=== PATIENT | male | born 1940 | race Caucasian/White ===

== ENCOUNTER 2019-05-10 23:19 | Inpatient (IN) | payer MEDICARE, BC ==
[~2019-05-10] VITALS: Ht 172.7 cm; Wt 77.3 kg
--- NOTE | ~2019-05-10 | HEMODYNAMI ---
PATIENT:CASSIE MONROY MEDICAL RECORD: [id number] : 38 LOCATION:[facility] D.2138 ADMISSION DATE: 05/11/19 Generatedon:05/15/201912:37 Patient name: CASSIE MONROY Patient #: [id number] SSN: : 1940 Date of study: 05/15/2019 Page: Of Hemodynamic Procedure Report Patient Data Patient Demographics Procedure consent was obtained First Name: CASSIE Gender: Male Last Name: ELIANA : 1940 Patient #: [id number] Age: 78 year(s) Race: Unknown Additional ID: [id number] Contact details [address]: [address] [place] [address] State: [place] City: [place] Zip code: [address] Admission Admission Data Admission Date: 05/11/2019 Admission Time: 2:23 Room #: D.2138 Lab Results Lab Result Date: 05/15/2019 Lab Result Time: 0:00 Biochemistry Name Units Result Min Max BUN mg/dl 34 --(----)-* 7 18 Creatinine mg/dl 1.4 --(----)*- 0.6 1.3 CBC Name Units Result Min Max Hemoglobin g/dl 9.8 *-(----)-- 13.5 17.5 Procedure Procedure Types Cath Procedure Diagnostic Procedure CIARA Procedure Description Procedure Date Procedure Date: 05/15/2019 Procedure Start Time: 12:25 Procedure End Time: 12:36 Procedure Staff Name Function Donald Kapadia MD Performing Physician Teresa Mendoza RT Monitor Nolberto Fink RT Scrub Shaunna Cervantes RT Scrub Elmer Estrada Multi Mission Helicopter Aircrewman Alfredo Combs MD Additional personnel Keila Rosales RN Candy Bar Attendant Procedure Data Cath Procedure Fluoroscopy Diagnostic fluoroscopy Total fluoroscopy Time: 0 time: 0 min min Diagnostic fluoroscopy Total fluoroscopy dose: 0 dose: 0 mGy mGy Contrast Material Contrast Material Type Amount (ml) Isovue 300 0 Estimated blood loss: 0 ml Procedure Complications No complications Procedure Medications Medication Administration Route Dosage 0.9% NaCl I.V. 100 ml/hr Oxygen etCO2 Nasal cannula 3 l/min Hurricaine [place] P.O. 2 Sprays Refer to Anesthesia Notes for Sedation Medications Hemodynamics Rest HGB: 9.8 (g/dl) Pre Cath Intra NCS Post Cath Vital Signs Time Heart Resp SPO2 etCO2 NIBP (mmHg) Rhythm Pain Sedation Rate (ipm) (%) (mmHg) Status Level (bpm) 12:19:06 80 15 100 0 187/107(155) NSR 0 (11) 10(A) , No pain 12:24:05 74 12 100 0.7 Measuring NSR 0 (11) 10(A) , No pain 12:24:46 78 13 100 0 195/105(180) NSR 0 (11) 10(A) , No pain 12:27:55 73 17 99 0 156/79(132) NSR 0 (11) 5(A) , No pain 12:31:28 49 16 98 0 117/59(83) NSR 0 (11) 10(A) , No pain 12:33:04 38 25 98 0 113/52(87) NSR 0 (11) 10(A) , No pain Medications Time Medication Route Dose Verified Delivered Reason Notes Effectiv eness by by 12:25:37 0.9% NaCl I.V. 100 Donald Keila used for ml/hr Steffi Rosales repack room worker 12:25:44 Oxygen etCO2 3 Donald Keila used for Nasal l/min Steffi Rosales procedure cannula RN 12:25:56 Hurricaine P.O. 2 Donald Keila used for [place] Sprays Steffi Rosales repack room worker 12:26:10 Refer to Donald Bennett Anesthesia Steffi Kapadia MD Notes for Sedation Medications Procedure Log Time Note 11:50:00 Elmer Estrada Boom Stick Man present for CIARA. 11:50:28 Alfredo Combs MD present and monitoring patient for TIVA. 12:05:27 Informed consent obtained and on chart 12:05:34 Diagnostic Cath Status : Elective 12:06:21 Nolberto Fink RT(R) sent for patient. Start room use. 12:06:22 Time tracking: Regular hours (M-F 7:00 - 5:00) 12:06:26 Plan of Care:Hemodynamics will remain stable., Cardiac rhythm will remain stable., Comfort level will be maintained., Respiratory function will remain adequate., Patient/ family verbilizes understanding of procedure., Procedure tolerated without complication., Recovers from procedure without complications.. 12:14:37 Patient received from Med II to CCL 2 Alert and oriented. Tansferred to table in Supine position. 12:14:38 Warm blankets applied, and ruddy hugger turned on for patient comfort. 12:14:38 Correct patient and procedure confirmed by team. 12:14:39 ECG and BP/O2 sat monitors applied to patient. 12:17:54 Vital chart was started 12:18:21 Full Disclosure recording started 12:18:26 H&P Date Dictated: 05/15/2019 New H&P dictated by physician.. 12:18:27 Pre-procedure instructions explained to patient. 12:18:28 Pre-op teaching completed and patient verbalized understanding. 12:18:29 Family in waiting room. 12:18:30 Patient NPO since Midnight. 12:18:32 Is the patient allergic to Iodine/contrast media? No. 12:18:33 Was the patient premedicated? No 12:20:35 Is patient on blood thinner?No 12:20:37 Patient diabetic? Unknown. 12:20:40 Previous problem with sedation/anesthesia? No ? 12:20:42 Snore? Unknown 12:20:44 Sleep apnea? Unknown 12:20:45 Deviated septum? No 12:20:46 Opens mouth fully? Yes 12:20:46 Sticks out tongue? Yes 12:21:18 Airway obstruction? No ? 12:21:22 Dentures? No ? 12:21:32 Patient pain scale 0/10 ?. 12:21:39 IV patent on arrival in right antecubital with 0.9% NaCl at [facility]. 12:21:41 Lab results completed and on chart. 12:21:44 Alarms reviewed by R. N. 12:21:45 Sharps counted by scrub and verified by R.N. 12:23:26 Lab Result : BUN 34 mg/dl 12:23:26 Lab Result : Hemoglobin 9.8 g/dl 12:23:26 Lab Result : Creatinine 1.4 mg/dl 12:25:21 Physician arrived 12:25:21 Final Timeout: patient, procedure, and site verified with staff and physician. All members of the team are in agreement. 12:25:22 --------ALL STOP TIME OUT------ 12:25:32 Fire Safety Assessment: A--An alcohol-based skin anteseptic being used preoperatively., C--Open oxygen or nitrous oxide is being used., D--An ESU, laser, or fiber-optic light is being used. 12:25:37 0.9% NaCl 100 ml/hr I.V. was administered by Keila Rosales RN; used for procedure; 12::39 Sedation plan: TIVA Medication:Propofol 12::44 Oxygen 3 l/min etCO2 Nasal cannula was administered by Keila Rosales RN; used for procedure; 12::44 Procedure started. 12::45 CIARA started. 12::56 Hurricaine [place] 2 Sprays P.O. was administered by Keila Rosales RN; used for procedure; 12:26:10 Refer to Anesthesia Notes for Sedation Medications was administered by Donald Kapadia MD; ; 12:30:21 CIARA completed. 12:30:27 Procedure ended.(Physican Out) 12:30:42 Fluoroscopy time 00.00 minutes. 12::44 Fluoroscopy dose: 0 mGy 12:30:44 Flurop Dose total: 0 12:30:48 Contrast amount:Isovue 300 0ml. 12:30:50 Sharps counted by scrub and verified by R.N. 12:32:17 Insertion/operative site no bleeding no hematoma. 12:32:22 Post procedure rhythm: unchanged. 12:32:25 Estimated blood loss: 0 ml 12:32:27 Post procedure instruction explained to patient.Patient verbalizes understanding. 12:32:27 Patient needs reinforcement of post procedure teaching. 12:32:31 Procedure and supply charges have been captured, reviewed, submitted and are correct. 12:32:36 Procedure Complication : No complications 12:32:39 Vital chart was stopped 12:32:58 See physician's report for complete and final results. 12:33:04 Report given to [facility]. 12:33:23 Patient transfered to [facility] with Stretcher. 12:36:24 Procedure ended. 12:36:24 Full Disclosure recording stopped 12:36:28 End room use (Document Last) Signature Audit [place] Stage Time Signature Unsigned Intra-Procedure 05/15/2019 Teresa Mendoza 12:37:02 PM RT(R) Signatures Performing Physician : Signature : Donald Kapadia MD Date : Time : Monitor : Teresa Mendoza RT Signature : Date : Time : [place] [address] [place] [address]
--- NOTE | ~2019-05-10 | OP ---
PATIENT NAME: CASSIE MONROY MEDICAL RECORD: [id number] :38 LOCATION:D.M2 D.2138 ADMISSION DATE:05/11/19 SURGEON: CHRISS KLEIN MD DATE OF OPERATION: 05/19/2019 PREOPERATIVE DIAGNOSES: 1. Dysphagia with aspiration. 2. Coronary artery disease. 3. Diabetes mellitus. 4. Hypertension. 5. Txvwh-yo-sqfzxyy diastolic heart failure. POSTOPERATIVE DIAGNOSES: 1. Dysphagia with aspiration. 2. Coronary artery disease. 3. Diabetes mellitus. 4. Hypertension. 5. Omuab-sw-ujyixvd diastolic heart failure. PROCEDURE: PEG tube placement. SURGEON: Chriss Klein MD REPORT OF PROCEDURE: An Olympus endoscope was advanced through the mouth and esophagus and into the stomach. The stomach was insufflated and we found an area to house our PEG tube on antrum of the stomach. We prepped the stomach and a total of 5 cc of 1% lidocaine with epinephrine was infused into the subcutaneous tissues. A skin incision was made on the chest and an Angiocath needle was inserted through the abdominal wall into the gastric lumen. An endo-snare was used to grasp the wire through this and the wire and scope were pulled back through the mouth and esophagus. The wire was then affixed to the PEG tube and these were pulled back through the abdominal wall through the mouth and esophagus until the PEG tube rested in good position at the skin at 3 cm. The endoscope was placed back into the gastric lumen and we could see there was no sign of any bleeding and that the tube appeared to be in good position. At this point, the insufflation and the scope were removed. COMPLICATIONS: None. CONDITION: Stable. ANESTHESIA: TIVA. BLOOD LOSS: Minimal. TRANSINT:[id number] Voice Confirmation ID: [id number] DOCUMENT ID: [id number] OPERATIVE REPORT [id number] ELIANACASSIE CHRISS KLEIN MD CC: [id number] DICTATION DATE: 05/19/19915 [place]ARDEN: 05/19/19 1027 ADM IN [place] [id number] [place] [address]
[2019-05-10] MEDS ORDERED: COREG6.25 MG PO (23:30)
[2019-05-10] MEDS ORDERED: GLIPIZIDE10 MG PO (23:31)
[2019-05-10] MEDS ORDERED: PRAVACHOL20 MG PO (23:31)
[2019-05-10] MEDS ORDERED: HYDROCHLOROTH12.5 M1 PO (23:31)
[2019-05-10] MEDS ORDERED: BLOOD THINNER (23:38)
[2019-05-10 23:41] VITALS: BP 156/60
[2019-05-10 23:43] LABS: HEMOGLOBIN 10.6 g/dL (13.5-17.5); LYMPHOCYTES 6.1 % (15-50); MCH 32.9 pg (26.0-34.0); MCHC 34.2 g/dL (31.0-37.0); MCV 96.3 fL (80.0-100.0); MEAN PLATELET VOLUME 9.5 fL (7.4-10.4); NEUTROPHILS 86.7 % (40-80); PLATELET COUNT 174 10x3/uL (130-400); RBC 3.22 10x6/uL (4.20-6.10); RDW 13.7 % (11.5-14.5); WBC 10.1 10x3/uL (4.8-10.8)
--- NOTE | 2019-05-10 23:43 | NUR ---
ASSESSMENT ON PATIENT PERFORMED BY MSTILESRN. CHARTED UNDER B MELENDREZ. UNABLE TO REMOVE.
[2019-05-10 23:54] LABS: INR 1.62 (0.85-1.17); PROTIME 18.6 SECONDS (11.6-15.0)
[2019-05-10 23:59] LABS: ALKALINE PHOSPHATASE 48 U/L (46-116); ALT (SGPT) 12 U/L (10-68); BILIRUBIN - TOTAL 0.66 mg/dL (0.2-1.3); CALC OSMOLALITY 284 mosm/kg (275-300); CALCIUM 8.4 mg/dL (8.5-10.1); CARBON DIOXIDE 22.1 mmol/L (21.0-32.0); CHLORIDE - SERUM 106 mmol/L (98-107); CREATININE - SERUM 1.4 mg/dL (0.6-1.3); GLUCOSE 110 mg/dL (74-106); POTASSIUM - SERUM 4.7 mmol/L (3.5-5.1); PROTEIN - SERUM 7.2 g/dL (6.4-8.2); SODIUM 139 mmol/L (136-145); UREA NITROGEN 28 mg/dL (7-18); eGFR NON AFRICAN AMERICAN 52 mL/min (90-120)
[2019-05-11 00:15] LABS: CKMB 2.1 U/L (0.0-3.6); CREATINE KINASE 149 UL (21-232); MAGNESIUM - SERUM 1.3 mg/dL (1.8-2.4); THYROID STIMULATING HORMONE 2.13 uIU/mL (0.36-3.74); TROPONIN-I 0.031 ng/mL (0.000-0.060)
[2019-05-11 04:00] VITALS: BP 109/40
--- NOTE | 2019-05-11 04:16 | NUR ---
PT TO FLOOR VIA BED. PT CONFUSED TO TIME AND SITUATION. IV TO R FA SL, DRSG C/D/I. 2L 02 VIA NC, BREATHING EVEN AND UNLABORED. NON PRODUCTIVE COUGH NOTED. WATER PROVIDED. CLARENCE MAT ON. TELE APPLIED, 68 SINUS FIRST DEGREE. PACEMAKER TO L CHEST. BLE GENERALIZED SWELLING. NO FURTHER CONCERNS AT THIS TIME. FALL PRECAUTIONS IN PLACE. SR UP X 3. YELLOW GOWN ON. NON SKID SOCKS IN PLACE. BED LOWERED AND LOCKED. CL IN REACH. WILL CTM
--- NOTE | 2019-05-11 07:06 | NUR ---
REPORT RECEIVED. HE WAS ON BEDPAN HAD SMALL LIQUID STOOL. PERICARE GIVEN. ALERT DENIES ANY OTHER NEEDS. O2 ON AT 2L/M. SALINE LOCK INTACT. CL IN REACH
[2019-05-11 08:05] VITALS: BP 180/56
--- NOTE | 2019-05-11 09:10 | NUR ---
HE STARTED VOMITING UP THICK YELLOW SPUTUM, HE WAS TURNED OVER ON LEFT SIDE AND SUCTIONED BUT WAS NOT ALERT BEFORE, RESP WERE INCREASED AT 30 TEMP WAS 103, HR 78, B/P WAS 170/53 BBS ARE CONGESTED ON RIGHT SIDE WITH CRACKLES DIMINISHED ON LEFT SIDE. IV SITE WAS RESITED BY ICU NURSE IN LEFT WRIST DUE TO HIS WAS PULLED OUT WHEN ROLLED OVER. NEW LAB ORDERS FOR LACTIC ACID AND BLOOD CULTURES. TYLENOL SUPP AND ZOFRAN WERE GIVEN. ORAL SUCTION DONE WITH THICK YELLOW URINE NOTED. .
--- NOTE | 2019-05-11 09:55 | NUR ---
DR RUELAS CALLED GIVEN UPDATE. NEW ORDERS RECEIVED. WILL UPDATE NURSE TO ADM.
--- NOTE | 2019-05-11 10:30 | NUR ---
MORE ALERT NOW WITH ICE PACKS UNDER ARMS AND IN GROIN TO HELP DECREASE TEMP. TEMP RECHECK IS 102.5 AT THIS TIME. ELIDIA ARMAS IS AWARE OF CONDITION AND CHANGE THIS AM. RESP CONTINUE TO BE LABORED BUT NO FURTHER VOMITING. O2 SAT ON 4 LITERS O2 IS 95%
--- NOTE | 2019-05-11 11:20 | NUR ---
RECHECK ON VITALS IS 102.2 TEMP 96% O2 SAT ON 4L/M O2. HR 68 AND RESP 20. ICE PACKS REMAIN. FAMILY IS HERE GIVING HIM WATER AND HE IS CHOKING ON IT, I ASKED THEM TO PLEASE STOP GIVING HIM LIQUIDS BECAUSE HE IS ASPIRATING ON IT. HE IS MORE ALERT BUT REMAINS CONGESTED. HOB IS UP
[2019-05-11 12:26] VITALS: BP 122/45
--- NOTE | 2019-05-11 14:04 | NUR ---
Rehab Note- Acute Inpatient prescreen order received. The patient is a new admit, continues with an acute work up, and phas pending Evals. Will continue to follow at this time. Thank you for this referral! Solange Vanegas RN Clinical Liaison, [facility] Rehab
--- NOTE | 2019-05-11 15:00 | NUR ---
TYLENOL SUPP GIVEN AT THIS TIME DUE TO TEMP 101.9. INCONTINENT CARE WAS GIVEN AND FAMILY HAS LEFT. SISTER IN LAW HAS HIS WALLET AND CELL PHONE. HIS NEPHEW IS HERE ALSO. SPEECH THERAPY HAS CAME BY AND ORDERED NECTAR THICK LIQUIDS WHICH HE HAS IRENE MUCH BETTER. HE IS MORE ALERT AND ABLE TO HELP US ROLL HIM OVER IN BED
[2019-05-11 15:04] VITALS: BMI 25.0
[2019-05-11 16:25] VITALS: BP 128/54
--- NOTE | 2019-05-11 17:12 | MORECARE ---
CASE MANAGEMENT DISCHARGE SUMMARY PATIENT: CASSIE MONROY UNIT: [id number] ADM DATE: 05/11/19 AGE: 78 : 39 SEX: M ROOM/BED: D.2137 AUTHOR: CLARIBEL,DOC PHYSICIAN: REFERRING PHYSICIAN: DEB RUELAS MD DATE OF SERVICE: 05/11/19 Discharge Plan Patient Name: CASSIE MONROY [facility] [facility] 1940 Planned Disposition: Inpatient Rehab Anticipated Discharge Date: Discharge Date: Expected LOS: Initial Reviewer: [email or web address] Initial Review Date: 05/11/2019 Generated: 05/11/19 6:12 pm Comments DCP- Discharge Planning Updated by [email or web address]: Ernesto Blanchard on 05/11/19 4:[address] Patient Name: CASSIE MONROY Admission Status: ER Accout number: [id number] Admission Date: 05-11-2019 : 1940 Admission Diagnosis: Attending: DEB RUELAS Current LOS: 1 Anticipated DC Date: Planned Disposition: Inpatient Rehab Primary Insurance: MEDICARE A & B PLANNED EXTERNAL PROVIDER: [facility] DCP follow-up note: CM RECEIVED ORDER FOR INPATIENT REHAB PRESCEENING. CM MET WITH PT IN ROOM TO DISCUSS DISCHARGE PLANNING AND NEEDS. PT REPORTS LIVING AT HOME INDEPENDENTLY AND ALONE. PT HAS A WALKER WITH NO MEDICAL EQUIPMENT PROVIDER PRFERENCE. PT HAS NO OUTSIDE SERVICES ASSISTING IN THE HOME. CM DISCUSSED AVAILABILITY OF HOME HEALTH, REHAB SERVICES AND MEDICAL EQUIPMENT. PT WOULD LIKE REHAB AT [facility]. CM WAITING RESULTS OF INPATIENT REHAB PRESCREENING AND ADMISSION DETERMINATION. ERNESTO BLANCHARD CASE JEANIE DCPIA - Discharge Planning Initial Assessment Updated by [id number]: Ernesto Blanchard on 05/11/19 5:09 pm * Is the patient Alert and Oriented? Yes * How many steps to enter\exit or inside your home? * PCP DR. CHEN ?? IN [place] * Pharmacy ?? IN [place] * Preadmission Environment Home Alone * ADLs Independent * Equipment Walker * Other Equipment NO MEDICAL EQUIPMENT PROVIDER PREFERENCE * List name and contact numbers for known caregivers / representatives who currently or will assist patient after discharge: MARCY HEALY, UNCLE, * Verbal permission to speak to the caregivers and representatives has been obtained from the patient. N/A * Community resources currently utilized None * Please name any agencies selected above. NONE * Additional services required to return to the preadmission environment? Yes * Can the patient safely return to the preadmission environment? Yes * Has this patient been hospitalized within the prior 30 days at any hospital? No Patient Name: CASSIE MONROY Page [phone] at 1712 All edits/amendments must be made on the electronic document DICTATION DATE: 05/11/191710 PAPER TUBE GRADER: KARON 05/11/191710 RPT#: [id number] DC DATE: STATUS: ADM IN [facility] [address] [place] [address] END OF REPORT
--- NOTE | 2019-05-11 17:45 | NUR ---
MORE ALERT, RESP EVEN WITHOUT LABOR CONTINUES TO BE CONGESTED BUT IT IS LESS. NO FURTHER VOMITING. SELF FED SUPPER AND DID COUGH SOME BUT DOES WELL WITH NECTAR THICK LIQUIDS. TEMP IS 99.3 AT THIS TIME
[2019-05-11 18:50] LABS: CKMB 1.5 U/L (0.0-3.6)
[2019-05-11 18:54] LABS: CREATINE KINASE 393 UL (21-232)
[2019-05-11 18:56] LABS: TROPONIN-I 0.141 ng/mL (0.000-0.060)
--- NOTE | 2019-05-11 19:30 | NUR ---
EVENING ROUNDS MADE. PT LAYING IN BED RESTING, HOB ELEVATED 45 DEGREES. DENIES PAIN AT THIS TIME. NO C/O NAUSEA AND VOMITTING. NO FAMILY AT BEDSIDE. FALL PRECAUTIONS IN PLACE. BED LOWERED AND LOCKED. CL IN REACH. WILL CTM.
--- NOTE | 2019-05-11 19:35 | NUR ---
NOTIFED UZIEL PAUL FOR POSITIVE BLOOD CULTURES. ORDERS GIVEN FOR TAPIA PLACEMENT. TAPIA PLACEMENT FAILED X 1 ATTEMPT. INFORMED UZIEL PAUL OF THIS, ORDERES GIVEN TO INSERT A COUDE CATH X1 AND IF FAILED ATTEMPT DO NOT ATTEMPT A SECOND TIME. LEGAL EXAMINER ASSISTED PT TO USE URINAL. URINE CULTURE COLLECTED AND SENT TO LAB. NOTIFIED UZIEL PAUL, ORDERS TO HOLD COUDE CATH FOR NOW TILL CULTURES ARE RECIEVED. WILL CTM.
[2019-05-11 20:00] VITALS: BP 120/42
--- NOTE | 2019-05-11 21:39 | NUR ---
URINE CULTURE TAKEN TO LAB.
--- NOTE | 2019-05-11 22:20 | NUR ---
VITALS STABLE. PT TOOK MEDS WITHOUT DIFF. PT ON NECTAR THICK LIQUIDS. IV TO R WRIST PATENT, DRSG C/D/I, NO REDNESS OR EDEMA NOTED. NON PRODUCTIVE COUGH NOTED. PACED ON TELE. BLE SWOLLEN. NO FURTHER CONCERNS AT THIS TIME. BED LOWERED AND LOCKED. CL IN REACH. WILL CTM.
[2019-05-12] VITALS: BP 107/42
[2019-05-12 00:28] LABS: CKMB 1.7 U/L (0.0-3.6); CREATINE KINASE 454 UL (21-232); TROPONIN-I 0.142 ng/mL (0.000-0.060)
[2019-05-12 04:00] VITALS: BP 100/37
[2019-05-12 06:18] LABS: BASOPHILS 0 % (0-2); EOSINOPHILS 0 % (0-7); HEMATOCRIT 28.3 % (42.0-54.0); HEMOGLOBIN 9.4 g/dL (13.5-17.5); IMMATURE GRANULOCYTES 0.3 % (0-5); LYMPHOCYTES 5.4 % (15-50); MCHC 33.2 g/dL (31.0-37.0); MCV 96.3 fL (80.0-100.0); MEAN PLATELET VOLUME 10.2 fL (7.4-10.4); MONOCYTES 6.1 % (2-11); NEUTROPHILS 88.2 % (40-80); RBC 2.94 10x6/uL (4.20-6.10); RDW 14.1 % (11.5-14.5); WBC 7.7 10x3/uL (4.8-10.8)
[2019-05-12 06:22] LABS: PLATELET COUNT 131 10x3/uL (130-400)
--- NOTE | 2019-05-12 06:26 | NUR ---
ASSISTED PT TO USE THE URINAL. DARK YELLOW URINE NOTED. PT LAYING IN BED RESTING AT THIS TIME. NO FURTHER NEEDS. FALL PRECAUTIONS IN PLACE. BED LOWERED AND LOCKED. CL IN REACH. WILL CTM.
[2019-05-12 06:46] LABS: ALKALINE PHOSPHATASE 19 U/L (46-116); BILIRUBIN - TOTAL 0.65 mg/dL (0.2-1.3); CALCIUM 7.3 mg/dL (8.5-10.1); CARBON DIOXIDE 21.3 mmol/L (21.0-32.0); CHLORIDE - SERUM 107 mmol/L (98-107); CKMB 1.7 U/L (0.0-3.6); CREATINE KINASE 502 UL (21-232); GLUCOSE 96 mg/dL (74-106); MAGNESIUM - SERUM 1.3 mg/dL (1.8-2.4); PHOSPHOROUS 3.6 mg/dL (2.5-4.9); PROTEIN - SERUM 5.8 g/dL (6.4-8.2); SODIUM 140 mmol/L (136-145)
[2019-05-12 06:47] LABS: ALT (SGPT) 23 U/L (10-68); CALC OSMOLALITY 288 mosm/kg (275-300); CREATININE - SERUM 2.3 mg/dL (0.6-1.3); POTASSIUM - SERUM 3.5 mmol/L (3.5-5.1); TROPONIN-I 0.138 ng/mL (0.000-0.060); UREA NITROGEN 41 mg/dL (7-18); eGFR NON AFRICAN AMERICAN 29 mL/min (90-120)
--- NOTE | 2019-05-12 07:00 | NUR ---
RECEIVED REPORT. ASSUMED CARE OF PATIENT. CALL LIGHT WITHIN REACH. PATIENT RESTING WITH EYES CLOSED. RESP EVEN AND UNLABORED. NO DISTRESS. LOWER EXTREMITY EDEMA NOTED. TEMPORARY CONTACT ISOLATION AT THIS TIME WHILE AWAITING BLOOD CULTURES.
[2019-05-12 08:00] VITALS: BP 111/40
[2019-05-12 10:18] LABS: UDS - AMPHET NEGATIVE QUAL (NEGATIVE); UDS - BARB NEGATIVE QUAL (NEGATIVE); UDS - BENZO NEGATIVE QUAL (NEGATIVE); UDS - COCAINE NEGATIVE QUAL (NEGATIVE); UDS - OPIATE NEGATIVE QUAL (NEGATIVE); UDS - PCP NEGATIVE QUAL (NEGATIVE); UDS - THC NEGATIVE QUAL (NEGATIVE)
[2019-05-12 10:30] LABS: APPEARANCE CLEAR (CLEAR); COLOR YELLOW (YELLOW); NITRITE NEGATIVE (NEGATIVE); PROTEIN TRACE mg/dL (NEGATIVE); SPECIFIC GRAVITY 1.015 (1.005-1.020)
[2019-05-12 10:31] LABS: BILIRUBIN NEGATIVE (NEGATIVE); GLUCOSE NEGATIVE (NEGATIVE); KETONE NEGATIVE (NEGATIVE); UROBILINOGEN NORMAL (NORMAL)
[2019-05-12 10:36] LABS: BACTERIA FEW /hpf (NONE SEEN); EPITHELIAL CELLS 0-5 /hpf (0-5); RED CELLS - URINE 0-5 /hpf (0-5); WHITE CELLS - URINE 0-5 /hpf (0-5)
--- NOTE | 2019-05-12 10:36 | NUR ---
PATIENT GAVE PERMISSION FOR THIS FORK TRUCK OPERATOR TO DISCUSS HIS CASE WITH HIS SISTER IN LAW, NELA MONROY.
[2019-05-12 16:45] VITALS: BP 126/48
--- NOTE | 2019-05-12 18:01 | NUR ---
IMPORTANT PHONE NUMBERS FOR PATIENT: SON - GUSTAVO MONROY IN [place] [phone] NELA MONROY - SISTER IN [facility] - [phone] YOSEPH JAY, FAMILY THAT LIVES NEXT DOOR - [phone] NEXT OF KIN CURRENTLY LISTED ON PATIENT CHART (MARCY) IS !
[2019-05-12 20:00] VITALS: BP 90/36
--- NOTE | 2019-05-12 20:05 | NUR ---
BOTANICAL TECHNICAL OFFICER REPORTED PT BP-90/36. RECHECKED PT'S BP-101/46
[2019-05-13] VITALS: BP 102/45
--- NOTE | 2019-05-13 01:30 | NUR ---
ASSISTED PT WITH BEDPAN,PT HAS BIG YELLOW AMOUNT OF LOOSE STOOL.
[2019-05-13 04:00] VITALS: BP 110/53
[2019-05-13 05:59] LABS: BASOPHILS 0.2 % (0-2); EOSINOPHILS 0.4 % (0-7); HEMATOCRIT 29.1 % (42.0-54.0); HEMOGLOBIN 9.8 g/dL (13.5-17.5); IMMATURE GRANULOCYTES 0.2 % (0-5); LYMPHOCYTES 10.9 % (15-50); MCH 32.1 pg (26.0-34.0); MCHC 33.7 g/dL (31.0-37.0); MCV 95.4 fL (80.0-100.0); MEAN PLATELET VOLUME 11.2 fL (7.4-10.4); MONOCYTES 9.5 % (2-11); NEUTROPHILS 78.8 % (40-80); PLATELET COUNT 124 10x3/uL (130-400); RBC 3.05 10x6/uL (4.20-6.10); RDW 14.3 % (11.5-14.5)
[2019-05-13 06:24] LABS: ALBUMIN 2.7 g/dL (3.4-5.0); ANION GAP 14.1 mmol/L (8-16); BILIRUBIN - TOTAL 0.47 mg/dL (0.2-1.3); CALCIUM 7.3 mg/dL (8.5-10.1); CARBON DIOXIDE 22.1 mmol/L (21.0-32.0); CREATININE - SERUM 2.4 mg/dL (0.6-1.3); MAGNESIUM - SERUM 1.4 mg/dL (1.8-2.4); PHOSPHOROUS 3.1 mg/dL (2.5-4.9); POTASSIUM - SERUM 3.2 mmol/L (3.5-5.1); PROTEIN - SERUM 5.4 g/dL (6.4-8.2); VANCOMYCIN - RANDOM 10.1 ug/mL (10.0-20.0)
--- NOTE | 2019-05-13 07:00 | NUR ---
RECEIVED REPORT. ASSUMED CARE OF PATIENT. RESTING WITH EYES CLOSED. RESP EVEN AND UNLABORED. NO DISTRESS. CALL LIGHT WITHIN REACH. BED ALARM PATENT.
[2019-05-13 09:40] VITALS: BP 106/55
--- NOTE | 2019-05-13 10:48 | NUR ---
PATIENT OOB WITH THERAPY. AMBULATED AROUND THE ROOM WITH MINIMAL ASSIST. PATIENT DID VERY WELL PER THERAPY.
--- NOTE | 2019-05-13 12:17 | NUR ---
SITTING UP IN BED CONSUMING NOON MEAL. NO DISTRESS.
--- NOTE | 2019-05-13 14:52 | NUR ---
SITTING UP IN BED, NO DISTRESS. CALL LIGHT WITHIN REACH. NO FAMILY AT BEDSIDE. DENIES NEEDS.
[2019-05-13 17:00] VITALS: BP 109/53
--- NOTE | 2019-05-13 19:13 | NUR ---
RESUMING PATIENT CARE. PATIENT IS ALERT AND ORIENTED, RESPIRATIONS ARE EVEN AND UNLABORED. NO S/S OF DISTRESS. NO C/O PAIN. CALL LIGHT WITHIN REACH. WILL CPOC.
[2019-05-13 20:00] VITALS: BP 118/58
[2019-05-14] VITALS: BP 131/53
[2019-05-14 03:40] VITALS: BP 118/58; Ht 172.7 cm; Wt 77.3 kg
[2019-05-14 04:00] VITALS: BP 165/69
[2019-05-14 05:13] LABS: BASOPHILS 0.2 % (0-2); EOSINOPHILS 1.9 % (0-7); HEMATOCRIT 28.7 % (42.0-54.0); HEMOGLOBIN 9.8 g/dL (13.5-17.5); IMMATURE GRANULOCYTES 0.5 % (0-5); LYMPHOCYTES 18.4 % (15-50); MCH 31.9 pg (26.0-34.0); MCHC 34.1 g/dL (31.0-37.0); MCV 93.5 fL (80.0-100.0); MEAN PLATELET VOLUME 10.8 fL (7.4-10.4); MONOCYTES 12.7 % (2-11); NEUTROPHILS 66.3 % (40-80); PLATELET COUNT 139 10x3/uL (130-400); RBC 3.07 10x6/uL (4.20-6.10); RDW 14.2 % (11.5-14.5); WBC 4.2 10x3/uL (4.8-10.8)
[2019-05-14 05:19] LABS: ALBUMIN 2.7 g/dL (3.4-5.0); ANION GAP 15.2 mmol/L (8-16); BILIRUBIN - TOTAL 0.35 mg/dL (0.2-1.3); CALCIUM 7.3 mg/dL (8.5-10.1); CARBON DIOXIDE 22.2 mmol/L (21.0-32.0); CREATININE - SERUM 1.4 mg/dL (0.6-1.3); MAGNESIUM - SERUM 1.4 mg/dL (1.8-2.4); PHOSPHOROUS 1.7 mg/dL (2.5-4.9); POTASSIUM - SERUM 3.4 mmol/L (3.5-5.1); PROTEIN - SERUM 5.2 g/dL (6.4-8.2); VANCOMYCIN - RANDOM 11.7 ug/mL (10.0-20.0)
--- NOTE | 2019-05-14 07:08 | NUR ---
PT AWAKE ADN ORIENTED, LYING ON BACK IN BED. ISOLATION EQUIPMENT IN PLACE. PT STATES HE SLEPT WELL LAST NIGHT. HAS NO COMPLAINTS/CONCERNS/COMMENTS. ALL QUESTIONS ANSWERED TO THE BEST OF MY ABIILTY. CL IN REACH, SRX2, BED ALARM ON.
[2019-05-14 09:12] VITALS: BP 163/67
[2019-05-14 15:42] VITALS: BP 139/56
--- NOTE | 2019-05-14 16:04 | NUR ---
I have reviewed this patient and I concur with the Shift Assessment completed by the Licensed Practical Nurse today this shift.
--- NOTE | 2019-05-14 18:38 | EC ---
PATIENT:CASSIE MONROY DATE OF SERVICE: 05/11/19 SEX: M MEDICAL RECORD: [id number] DATE OF : [birth year] LOCATION:D.M2 D.213 AGE OF PATIENT: 78 ADMISSION DATE: 05/11/19 REFERRING PHYSICIAN: INTERPRETING PHYSICIAN: JANEE KAPADIA MD ECHOCARDIOGRAM REPORT ECHO CHARGES 4 ECHO COMPLETE Date: 05/11/19 CLINICAL DIAGNOSIS: CHF HX PACEMAKER ECHOCARDIOGRAPHIC MEASUREMENTS (adult normal given) AC root (d.<3.7cm) 3.8 cm LV Septum d (<1.2 cm> 1.4 cm Valve Excursion 1.5 cm LV Septum (systole) 1.7 cm Left Atria (s.<4.0cm> 4.2 cm LVPW d(<1.2cm) 1.6 cm RV (d.<2.3cm) 5.0 cm LVPW (sytole) 2.0 cm LV diastole(<5.6CM) 4.7 cm MV E-F(>70mm/sec) cm LV systole 3.4 cm LVOT Diameter 2.0 cm MV exc.(>10mm) 1.5 cm Est.ejection fraction (50-75%) % DOPPLER: LVIT cm/sec A 60.0 cm/sec E 78.0 cm/sec LA cm/sec RVSP 62 mmHg LVOT 144 cm/sec AOP1/2T 548 m/s Asc. Ao 152 cm/sec RVOT 69 cm/sec RA cm/sec PA 102 cm/sec AV Gradient Peak 9.20 mmHg AV Mean 5.68 mmHg AV Area 2.5 cm MV Gradient Peak 3.75 mmHg MV Mean 1.09 mmHg MV Area cm COMMENTS: Automotive Professional: Noel TEAGUE Test Engineering Technician: 1 Dr. Kapadia TAPE# PACS Pericardial Effusion N DATE OF SERVICE: 05/11/2019 PROCEDURE: Echocardiogram. FINDINGS: 1. Left ventricular chamber size is within normal limits. Left ventricular systolic function is normal. Overall ejection fraction estimated at 55%. 2. Left atrium is enlarged at 4.2 cm. Right atrium and right ventricular chamber sizes are moderate to severely dilated. 3. Valvular structures have normal structure and motion. ECHOCARDIOGRAM REPORT [id number] CASSIE MONROY 4. Doppler interrogation reveals mild to moderate aortic insufficiency, moderate to severe tricuspid regurgitation, no other valvular insufficiency or stenosis. 5. No evidence of pericardial effusion or left ventricular thrombus. TRANSINT:[id number] Voice Confirmation ID: [id number] DOCUMENT ID: [id number] JANEE KAPADIA MD at 1838 CC: [id number] DICTATION DATE: 05/11/19 1225 DICTAPHONE OPERATOR: 05/11/19 1258 ADM IN [place] [id number] [place] [id number]
--- NOTE | 2019-05-14 21:10 | NUR ---
BEDSIDE REPORT GIVEN, EVENING ROUNDS COMPLETED. PT AAO X1, VSS. PT REQUESTED BED FOY. ASSISTED PT WITH BRIEN CARE, CLEAN LINENS PLACED. PT HAVING DIFFICULTY SWALLOWING WITH NECTAR THICKEN LIQUIDS. PT IS STILL ON CONTACT ISOLATION FOR MRSA IN BLOOD. BED IN LOWEST POSITION, CALL LIGHT IN REACH.
[2019-05-14 21:12] VITALS: BP 179/72
[2019-05-15] VITALS: BP 178/82
[2019-05-15 04:00] VITALS: BP 142/63
[2019-05-15 06:02] LABS: BASOPHILS 0.2 % (0-2); EOSINOPHILS 2.3 % (0-7); HEMATOCRIT 30.6 % (42.0-54.0); HEMOGLOBIN 10.3 g/dL (13.5-17.5); IMMATURE GRANULOCYTES 0.6 % (0-5); LYMPHOCYTES 25.5 % (15-50); MCH 31.9 pg (26.0-34.0); MCHC 33.7 g/dL (31.0-37.0); MCV 94.7 fL (80.0-100.0); MEAN PLATELET VOLUME 10.7 fL (7.4-10.4); MONOCYTES 14.1 % (2-11); NEUTROPHILS 57.3 % (40-80); PLATELET COUNT 162 10x3/uL (130-400); RBC 3.23 10x6/uL (4.20-6.10); RDW 14.6 % (11.5-14.5)
[2019-05-15 06:29] LABS: WBC 5.3 10x3/uL (4.8-10.8)
[2019-05-15 06:33] LABS: ALBUMIN 2.9 g/dL (3.4-5.0); ANION GAP 15.4 mmol/L (8-16); BILIRUBIN - TOTAL 0.44 mg/dL (0.2-1.3); CALCIUM 7.9 mg/dL (8.5-10.1); CARBON DIOXIDE 23.1 mmol/L (21.0-32.0); CREATININE - SERUM 1.1 mg/dL (0.6-1.3); MAGNESIUM - SERUM 1.7 mg/dL (1.8-2.4); PHOSPHOROUS 1.7 mg/dL (2.5-4.9); POTASSIUM - SERUM 3.5 mmol/L (3.5-5.1); PROTEIN - SERUM 6.1 g/dL (6.4-8.2); VANCOMYCIN - RANDOM 12.8 ug/mL (10.0-20.0)
--- NOTE | 2019-05-15 07:05 | NUR ---
REPORT RECEIVED. HE IS CONFUSED AT THIS TIME. THINKS HE IS GOING HOME TODAY. CONTINUE ON THICK LIQUIDS NECTAR BUT COUGHS AT TIMES. RIGHT HAND WITH SALINE LOCK INTACT, DENIES ANY CURRENT NEEDS. O2 ON AT 4 LITER PER N/C
[2019-05-15 08:45] VITALS: BP 162/78
--- NOTE | 2019-05-15 09:30 | NUR ---
NOTICED ORDER FOR ONE UNIT OF BLOOD FROM YESTERDAY THAT WAS NOT TRANSFUSED. I WENT IN AND SPOKE WITH HIM CONCERNING THIS AND HE REFUSED TO SIGN CONSENTS FOR IT OR TAKE BLOOD.
[2019-05-15 11:29] VITALS: BP 148/71
--- NOTE | 2019-05-15 14:15 | NUR ---
NOTIFIED JANENE WITH DR BRYANT THAT WE ARE UNABLE TO COMPLETE CAROID OR CT DUE TO HIS REFUSAL TO ALLOW ME TO RESTART HIS SALINE LOCK FOR 20GUAGE FOR RADIOLOGY. HE STATES NO TO ME TWICE AND SAYS YOU AND NOBODY ELSE IS STICKING ME.
--- NOTE | 2019-05-15 14:33 | NUR ---
OT NOTE: PT MORE CONFUSED THIS AFTERNOON. PT STATING THAT HE IS GETTING READY TO GO HOME AND WANTS TO GO BACK TO BED. BED MOB WITH MOD ASSIST TODAY. DIFFICULTY PERFORMING SIMPLE GROOMING AND ADLS INCLUDING REACHING AND HOLDING PHONE. WILL CONT TO ENCOURAGE PARTICIPATION. MARY URIOSTEGUI, OTR/L
[2019-05-15 15:05] VITALS: BP 152/66
--- NOTE | 2019-05-15 16:30 | NUR ---
20 GUAGE SALINE LOCK STARTED IN LEFT HAND BY SALAZAR. I DID CALL RADIOLOGY TO LET THEM KNOW HE GOT A BIGGER SALINE LOCK AND CAN PROCEED WITH TEST IF HE WILL ALLOW THEM TO DO IT. HE IS STATING I DONT WANT ANYMORE TESTS DONE TODAY. SPEECH THERAPY CAME BY AND STATED HE IS ASPIRATING AND NEEDS ALTERNATIVE WAY TO FEED HIM I SPOKE WITH HIM ABOUT THIS AND HE REFUSED. HIS FAMILY CAME FOR VISIT AND THEY ARE CONCERNED BECAUSE HE TOLD THEM HE WAS GOING HOME. I TOLD HER OF HIS REFUSAL OF TEST AND FEEDING TUBE.
--- NOTE | 2019-05-15 20:51 | NUR ---
FOUND PT TRYING TO GET OUT OF BED. REOIRIENT AND EDUCATE PT ON THE NEED TO STAY IN BED TO PREVENT FALL. PT REQUESTED FOR SPRITE WITHOUT THICKENED LIQUID. EDUCATE PT ON THE NEED TO HAVE IT WITH THICKENED LIQUID. PT VOICED THANKS. WILL CPOC.
[2019-05-15 22:14] VITALS: BP 165/76
[2019-05-16 01:01] VITALS: BP 189/87
--- NOTE | 2019-05-16 02:35 | NUR ---
FOUND PT LAYING SIDEWAYS IN BED. PT HAD REMOVED HIS TELEMETRY LEADS AND GOWN. REPOSITIONED PT IN BED WITH CLEAN LINENS, PT REFUSES TO WEAR GOWN OR TELEMETRY, STATES HE WANTS TO GET HIS CLOTHES AND GO HOME. EDUCATION WITH PT ON IMPORTANCE IN STAYING IN HOSPITAL, WILL HAVE ADMIN DR EVALUATE PT IN THE AM.
--- NOTE | 2019-05-16 02:58 | NUR ---
ASSESSED PT BP 180/92, BEVERLY TRIPLETT ORDERED HYDRALAZINE PRN. PT REFUSED MEDICATION AND INSISTS HE NEEDS HIS CLOTHES AND WANTS TO GO HOME.
[2019-05-16 04:35] LABS: BASOPHILS 0.2 % (0-2); HEMATOCRIT 30.9 % (42.0-54.0); HEMOGLOBIN 10.5 g/dL (13.5-17.5); IMMATURE GRANULOCYTES 0.7 % (0-5); LYMPHOCYTES 25.6 % (15-50); MCV 94.2 fL (80.0-100.0); MEAN PLATELET VOLUME 10.3 fL (7.4-10.4); MONOCYTES 14.1 % (2-11); NEUTROPHILS 56.4 % (40-80); PLATELET COUNT 175 10x3/uL (130-400); RBC 3.28 10x6/uL (4.20-6.10); RDW 14.5 % (11.5-14.5)
[2019-05-16 04:55] LABS: ALKALINE PHOSPHATASE 33 U/L (46-116); BILIRUBIN - TOTAL 0.66 mg/dL (0.2-1.3); CARBON DIOXIDE 23.6 mmol/L (21.0-32.0); CHLORIDE - SERUM 113 mmol/L (98-107); GLUCOSE 114 mg/dL (74-106); MAGNESIUM - SERUM 1.6 mg/dL (1.8-2.4); PHOSPHOROUS 1.7 mg/dL (2.5-4.9); POTASSIUM - SERUM 3.7 mmol/L (3.5-5.1); PROTEIN - SERUM 6.2 g/dL (6.4-8.2); SODIUM 140 mmol/L (136-145); eGFR NON AFRICAN AMERICAN 76 mL/min (90-120)
--- NOTE | 2019-05-16 04:55 | NUR ---
FOUND PT IN THE ROOM TALKING TO THE POLICE ON THE PHONE. HE STATES HE WANT THE POLICE TO COME PICK HIM UP @ THE HOSPITAL. HE HAS ALSO PREVIOUSLY CONTACTED HIS SISTER IN-LA[place] ASKING HER TO COME PICK HIM UP @ THE HOSPITAL. PT HAS BEEN CONTINUOUSLY CONFUSED AND DISORIENTED ALL NIGHT. NOTIFIED PROFESSOR OF PUBLIC ADMINISTRATION, EDWARD AND ALSO CONTACTED [facility] [place] [facility] EMERGENCY CONTACT AND NOTIFIED THEM ABOUT RECENT CHANGES WITH PT.
[2019-05-16 05:16] VITALS: BP 212/93
[2019-05-16 05:18] LABS: ALT (SGPT) 44 U/L (10-68); CALC OSMOLALITY 279 mosm/kg (275-300); UREA NITROGEN 12 mg/dL (7-18)
--- NOTE | 2019-05-16 05:21 | NUR ---
CLINICAL NUTRITIONIST EDWARD IN PT'S ROOM TALKING TO PT AT THIS TIME. PT FINALLY DECIDED TO GET HIS BP MED. BEVERLY TRIPLETT ALSO ORDERED HALDOL FOR PT AT THIS TIME. WILL ADMINISTER.
--- NOTE | 2019-05-16 06:48 | NUR ---
HALDOL GIVEN, AND APRESOLINE ADMNISTERED FOR BP OF 212/96. PT IN BED TRYING TO PUT HIS CLOTHES ON. STILL INSISTS ON LEAVING THE FACILITY. FAMILY CALLED AND NOTIFIED ABOUT PT'S RECENT CHANGES. WILL CTM.
--- NOTE | 2019-05-16 07:10 | NUR ---
REPORT RECEIVED. ALERT WITH CONFUSION. HE STATES HE IS GOING HOME TODAY. I TRIED TO EXPLAIN HE IS SICK AND THE DOCTOR HAS NOT DISCHARGED BUT HE SAYS I DONT CARE. CL IN REACH RESP EVEN WITHOUT LABOR. CLARENCE ALARM IS ON.
[2019-05-16 08:41] VITALS: BP 132/65
--- NOTE | 2019-05-16 09:30 | NUR ---
SPOKE WITH LAM ARMAS ABOUT HIS REFUSAL OF TEST, MEDS AND PEG OR NGT PLACEMENT. SHE STATED HE IS CONFUSED SO GET A HOLD OF FAMILY AND SEE WHAT THEY WISH TO DO. I DID CALL HIS SON GUSTAVO AND EXPLAIN EVERYTHING AND HE IS DECIDING ABOUT FEEDING TUBE OR NOT. HIS SISTER IN LAW IS HERE AND IS ALSO UPDATED. HE REMAINS CONFUSED BUT AGREES TO STAY IN BED FOR NOW
--- NOTE | 2019-05-16 11:59 | MORECARE ---
CASE MANAGEMENT DISCHARGE SUMMARY PATIENT: CASSIE MONROY UNIT: [id number] ADM DATE: 05/11/19 AGE: 78 : 39 SEX: M ROOM/BED: D.213 AUTHOR: CLARIBEL,DOC PHYSICIAN: REFERRING PHYSICIAN: DEB RUEALS MD DATE OF SERVICE: 05/16/19 Discharge Plan Patient Name: CASSIE MONROY [facility] [facility] 1940 Planned Disposition: Inpatient Rehab Anticipated Discharge Date: Discharge Date: Expected LOS: Initial Reviewer: [email or web address] Initial Review Date: 05/11/2019 Generated: 05/16/19 12:58 pm DCP- Discharge Planning Updated by [email or web address]: Ernesto Blanchard on 05/11/19 4:[address] Patient Name: CASSIE MONROY Admission Status: ER Accout number: [id number] Admission Date: 05-11-2019 : 1940 Admission Diagnosis: Attending: DEB RUELAS Current LOS: 1 Anticipated DC Date: Planned Disposition: Inpatient Rehab Primary Insurance: MEDICARE A & B PLANNED EXTERNAL PROVIDER: [facility] DCP follow-up note: CM RECEIVED ORDER FOR INPATIENT REHAB PRESCEENING. CM MET WITH PT IN ROOM TO DISCUSS DISCHARGE PLANNING AND NEEDS. PT REPORTS LIVING AT HOME INDEPENDENTLY AND ALONE. PT HAS A WALKER WITH NO MEDICAL EQUIPMENT PROVIDER PRFERENCE. PT HAS NO OUTSIDE SERVICES ASSISTING IN THE HOME. CM DISCUSSED AVAILABILITY OF HOME HEALTH, REHAB SERVICES AND MEDICAL EQUIPMENT. PT WOULD LIKE REHAB AT [facility]. CM WAITING RESULTS OF INPATIENT REHAB PRESCREENING AND ADMISSION DETERMINATION. ERNESTO [place] CASE MANAGEMENT DCPIA - Discharge Planning Initial Assessment Updated by [id number]: Ernesto Blanchard on 05/11/19 5:09 pm * Is the patient Alert and Oriented? Yes * How many steps to enter\exit or inside your home? * PCP DR. CHEN ?? IN [place] * Pharmacy ?? IN [place] * Preadmission Environment Home Alone * ADLs Independent * Equipment Walker * Other Equipment NO MEDICAL EQUIPMENT PROVIDER PREFERENCE * List name and contact numbers for known caregivers / representatives who currently or will assist patient after discharge: MARCYMAEGAN HEALY, UNCLE, * Verbal permission to speak to the caregivers and representatives has been obtained from the patient. N/A * Community resources currently utilized None * Please name any agencies selected above. NONE * Additional services required to return to the preadmission environment? Yes * Can the patient safely return to the preadmission environment? Yes * Has this patient been hospitalized within the prior 30 days at any hospital? No Last DP export: 05/11/19 4:12 p Patient Name: CASSIE MONROY Page [id number] at 1159 All edits/amendments must be made on the electronic document DICTATION DATE: 05/16/19 115 PIPING SUPERVISOR: KARON 05/16/19 1158 RPT#: [id number] DC DATE: STATUS: ADM IN [facility] [address] [place] [address] END OF REPORT
[2019-05-16 12:04] VITALS: BP 134/60
--- NOTE | 2019-05-16 12:10 | MORECARE ---
CASE MANAGEMENT DISCHARGE SUMMARY PATIENT: CASSIE MONROY UNIT: [id number] ADM DATE: 05/11/19 AGE: 78 : 39 SEX: M ROOM/BED: D.1134 AUTHOR: CLARIBEL,DOC PHYSICIAN: REFERRING PHYSICIAN: DEB RUELAS MD DATE OF SERVICE: 05/16/19 Discharge Plan Patient Name: CASSIE MONROY [facility] [facility] 1940 Planned Disposition: Inpatient Rehab Anticipated Discharge Date: Discharge Date: Expected LOS: Initial Reviewer: [email or web address] Initial Review Date: 05/11/2019 Generated: 05/16/19 1:09 pm DCP- Discharge Planning Updated by [email or web address]: Ernesto Blanchard on 05/16/19 11:[address] Patient Name: CASSIE MONROY Encounter No: [id number] : 1940 Primary Insurance: MEDICARE A & B Anticipated DC Date: Planned Disposition: Inpatient Rehab External Planned Provider: [facility] DCP follow-up note: CM SPOKE TO BEDSIDE NURSE WHO HAS TALKED WITH PT'S SON AND PT'S SON ASKED TO SPEAK TO HYDRAULIC PRESS OPERATOR. CM CALLED GUSTAVO MONROY, PT'S SON, ; GUSTAVO IS THE ONLY CHILD. PT IS NOT . PT DOES HAVE A BROTHER AND BROTHER'S , YUMIKO AND NELA MONROY. GUSTAVO REPORTS IT IS OK TO DISCUSS PT'S CARE AND PLANNING WITH THEM, BUT GUSTAVO WILL BE MAKING MEDICAL DECISIONS. GUSTAVO IS CONSIDERING HAVING A FEEDING TUBE PUT INTO PATIENT. GUSTAVO ALSO REPORTS THAT IF PT IS DECLINED REHAB AT [facility], HE WANTS PT REFERRED TO [facility] IN [place] IF PT NEEDS REHAB. CHOICE COMPLETED FOR ANY [facility]ACILITY IN [place]. GUSTAVO REPORTS THAT THE EMERGENCY CONTACT LISTED ON FACE SHEET, MARCY HEALY, IS . PT'S SON IS CONSIDERING FEEDING TUBE WELL [facility] PLAC[facility] IN [place] IF PT IS NOT ACCEPTED FOR INPATIENT REHAB. PT'S SON IS GUSTAVO MONROY, ; GUSTAVO LIVES IN [place] AND IS 2 HOURS BEHIND OUR TIME. Ernesto Blanchard, CASE MANAGEMENT DCP- Discharge Planning Updated by [id number]: Ernesto Blanchard on 05/11/19 4:[address] Patient Name: CASSIE MONROY Admission Status: ER Accout number: [id number] Admission Date: 05-11-2019 : 1940 Admission Diagnosis: Attending: DEB RUELAS Current LOS: 1 Anticipated DC Date: Planned Disposition: Inpatient Rehab Primary Insurance: MEDICARE A & B PLANNED EXTERNAL PROVIDER: [facility] DCP follow-up note: CM RECEIVED ORDER FOR INPATIENT REHAB PRESCEENING. CM MET WITH PT IN ROOM TO DISCUSS DISCHARGE PLANNING AND NEEDS. PT REPORTS LIVING AT HOME INDEPENDENTLY AND ALONE. PT HAS A WALKER WITH NO MEDICAL EQUIPMENT PROVIDER PRFERENCE. PT HAS NO OUTSIDE SERVICES ASSISTING IN THE HOME. CM DISCUSSED AVAILABILITY OF HOME HEALTH, REHAB SERVICES AND MEDICAL EQUIPMENT. PT WOULD LIKE REHAB AT [facility]. CM WAITING RESULTS OF INPATIENT REHAB PRESCREENING AND ADMISSION DETERMINATION. ERNESTO [place], CASE MANAGEMENT DCPIA - Discharge Planning Initial Assessment Updated by [email or web address]: Ernesto Blanchard on 05/16/19 12:02 pm * Is the patient Alert and Oriented? Yes * How many steps to enter\exit or inside your home? * PCP DR. CHEN ?? IN [place] * Pharmacy ?? IN [place] * Preadmission Environment Home Alone * ADLs Independent * Equipment Walker * Other Equipment NO MEDICAL EQUIPMENT PROVIDER PREFERENCE * List name and contact numbers for known caregivers / representatives who currently or will assist patient after discharge: GUSTAVO MONROY, EDMUND, * Verbal permission to speak to the caregivers and representatives has been obtained from the patient. N/A * Community resources currently utilized None * Please name any agencies selected above. NONE * Additional services required to return to the preadmission environment? Yes * Can the patient safely return to the preadmission environment? Yes * Has this patient been hospitalized within the prior 30 days at any hospital? No Coverage Notice Reviewer: [id number] - Ernesto Blanchard Notice Issued Date-Time: 05/16/2019 11:00 Notice Type: Patient Choice Letter Notice Delivered To: Family Member Relationship to Patient: Son Assistant Finance Director Name: GUSTAVO MONROY Delivery Method: HAND - Hand Delivered Linda Days: Prior Verbal Notification: Recipient Understood Notice: Yes Recipient Signature: Yes Med Rec Note Co-signed by Attending: Coverage Notice Comment: ANY SNF IN [place] Last DP export: 05/16/19 10:59 a Patient Name: CASSIE MONROY Page 18275 at 1210 All edits/amendments must be made on the electronic document DICTATION DATE: 05/16/191208 RISK MANAGEMENT DIRECTOR: KARON 05/16/191208 RPT#: [id number] DC DATE: STATUS: ADM IN [facility] [address] [place] [address] END OF REPORT
--- NOTE | 2019-05-16 13:25 | NUR ---
RIGHT PICC LINE WAS PLACED BY ACCESS NURSE AFTER HE SIGNED THE CONSENT AND COOPERATED WITH IT. PROCALAMINE AT 75CC/HR AFTER XRAY CONFIRMED PLACEMENT AND WITH DR JESSE HEARD ITS USE. HE WILL CALL THE SON AND TALK TO HIM AND HE TOLD THE PATIENT DUE TO SEVERE ASPIRATION HE HAS TO EITHER GET PEG TUBE PLACED OR GO ON HOSPICE. HE IS ALSO UNDECIDED ON WHAT HE WANTS
--- NOTE | 2019-05-16 15:01 | NUR ---
OT NOTE:PTEXTREMELY CONFUSED THIS AM. CONTINUALLY ATTEMPTING TO PUT ON CLOTHES AND STATING THAT HE WAS GOING HOME. BETTER IN THE PM. BED MOB WITH MIN ASSIST; REQUIRED MOD ASSIST TO PAULETTE PULL UPS; MIN ASSIST TO PAULETTE SHIRT; MOD ASSIST TO PAULETTE SOCKS. SIT TO STAND WITH MIN ASSIST; ABLE TO SIDE STEP WITH MOD ASSIST. MARY URIOSTEGUI, OTR/L
--- NOTE | 2019-05-16 15:21 | NUR ---
Nutrition follow-up: Pt now NPO; failed swallow eval ProcalAmine PPN started @ 75 ml/hr Labs reviewed WT: 170# Pt confused per nursing Son considering PEG tube placement RDN following.
[2019-05-16 15:46] VITALS: BP 142/69
--- NOTE | 2019-05-16 19:50 | NUR ---
ROUNDS COMPLETED. VSS, ALERT BUT CONFUSED. FOUND PT ON THE EDGE OF THE BED. PT STATES I'M READY TO GO HOME. REORIENT PT, AND EDUCATE PT ON NEED TO REMAIN IN BED/HOSPITAL UNTIL HE IS DC'D. ASSIST PT BACK IN BED. PICC LINE IN R.UPPER ARM. INTACT AND PATENT. PT NPO PER PROVIDERS ORDER. PT DENIES ANY FURTHER NEEDS AT THIS TIME. WILL CTM.
[2019-05-16 20:00] VITALS: BP 177/82
--- NOTE | 2019-05-16 20:50 | NUR ---
PT REFUSED CHRONULAC AND ENTRESTO. HE ONLY ACCEPTED ALL THE MEDS TO BE GIVEN PIV. PT STILL INSIST THE HE WOULD LIKE TO GO HOME. REQUESTED FOR HIS SHIRT AND PANTS. WILL CTM.
--- NOTE | 2019-05-16 23:00 | NUR ---
BED BATH PROVIDED. PT VOICED THANKS. PT LAYING IN BED WITH EYES CLOSED AT THIS TIME. DENIES ANY FURTHER NEEDS WILL CTM. CL WITHIN REACH.
[2019-05-17] VITALS: BP 156/66
[2019-05-17 04:00] VITALS: BP 181/83
--- NOTE | 2019-05-17 06:44 | NUR ---
PT BP 181/82 PRN APRESOLINE GIVEN PER PROVIDERS ORDER. PROCAL INFUSING. WILL CTM.
[2019-05-17 08:49] VITALS: BP 166/89
[2019-05-17 12:25] VITALS: BP 172/62
--- NOTE | 2019-05-17 14:52 | NUR ---
Rehab Note- Continue to follow at this time. Discussing possible PEG placement with the patient's son. Will continue to follow at this time. Thank you for this referral! Solange Vanegas RN Clinical Liaison, [facility] Rehab
--- NOTE | 2019-05-17 16:26 | NUR ---
I have reviewed this patient and I concur with the Shift Assessment completed by the Licensed Practical Nurse today this shift.
[2019-05-17 16:39] VITALS: BP 169/70
--- NOTE | 2019-05-17 19:10 | NUR ---
BED SIDE REPORT RECEIVED, PT IS ALERT. NO S/S OF DISTRESS. BED LOW AND CALL LIGHT IN REACH. PROCAL INFUSING ORDERED TO RIGHT UPPER ARM PICC. NAME AND DATE PLACED ON BOARD. BED ALARM ON AND ACTIVE. 225 URINE EMPTIED FROM URINAL. CLOUDY YELLOW. PT WILL CALL FOR ASSIST WHEN NEEDED. WILL CPOC
--- NOTE | 2019-05-17 19:31 | NUR ---
OT NOTE: PT COMPLETED BED MOB WITH CGA/MIN A. PT COMPLETED EOB SITTING WITH SBA. PT COMPLETED STANDING BALANCE WITH MIN A/ MOD A WITH DYNAMIC ACTIVITIES. PT COMPLETED UE AROM/AAROM AXS. PT COMPLETED FACE WASHING WITH SET UP. THANK YOU, MIK JAQUEZ
[2019-05-17 20:00] VITALS: BP 165/87
--- NOTE | 2019-05-17 21:01 | NUR ---
PT IS AAO, IV MEDICATIONS GIVEN. PROCAL NEW TUBING AND BOTTLE STARTED BECAUSE BOTTLE EMPTY. PT PULLED UP IN BED. NO ORAL MEDICATIONS GIVEN DUE TO ASPIRATION PRECAUTIONS. PT HAS GARBLED SPEECH. PT DENIES ANY NEEDS. NO S/S OF DISTRESS. WILL CPOC
[2019-05-18] VITALS: BP 167/77
--- NOTE | 2019-05-18 00:21 | NUR ---
PT CALLING OUT. PT DID NOT HIT CALL LIGHT LIKE HE THOUGHT HE HAD. SHOWED PT HOW TO HIT NURSE CALL BUTTON. EMPTIED 200CC FROM URINAL. PT REPOSITIONED. ANTIBIOTIC GIVEN ORDERED. PT WILL CALL FOR ASSIST WHEN NEEDED. WILL CPOC
--- NOTE | 2019-05-18 01:25 | NUR ---
ORDER FOR TELEMETRY NOTED. CHECKED NOTED AND MONITOR REMOVED ON THE DUE TO PT REFUSAL
--- NOTE | 2019-05-18 03:12 | NUR ---
PT ASLEEP. RESP EVEN AND UNLABORED. NO S/S OF DISTRESS. BED LOW AND CALL LIGHT IN REACH. ALARM ON AND ACTIVE. WILL CPOC
--- NOTE | 2019-05-18 03:50 | NUR ---
PAUSED PROCAL AND FLUSHED PICC LINE, PT SPILLED URINAL. TECH AND NURSE GIVING PT A BATH. DRAWING BLOOD AND ONE SET OF BLOOD CULTURES FROM RIGHT UPPER ARM PICC LINE. THEN WILL RESTART PROCAL ORDERED AND START ANTIBIOTIC NAFCILLIAN PT IS AAO. VERBALIZED UNDERSTANDING OF ASPIRATION PRECAUTIONS. PT DENIES ANY NEEDS. NO S/S OF DISTRESS. RIGHT WRIST IV INTACT AND PATENT. NOT USING AT THIS TIME. PT COUGHING. NON PRODUCTIVE. WILL CPOC
[2019-05-18 04:00] VITALS: BP 192/87
[2019-05-18 04:50] LABS: BASOPHILS 0.2 % (0-2); EOSINOPHILS 5.3 % (0-7); HEMATOCRIT 33.3 % (42.0-54.0); HEMOGLOBIN 11.2 g/dL (13.5-17.5); IMMATURE GRANULOCYTES 1.8 % (0-5); LYMPHOCYTES 28.6 % (15-50); MCH 31.5 pg (26.0-34.0); MCHC 33.6 g/dL (31.0-37.0); MCV 93.8 fL (80.0-100.0); MEAN PLATELET VOLUME 10.2 fL (7.4-10.4); MONOCYTES 12.9 % (2-11); NEUTROPHILS 51.2 % (40-80); PLATELET COUNT 219 10x3/uL (130-400); RBC 3.55 10x6/uL (4.20-6.10); RDW 14.5 % (11.5-14.5); WBC 5.1 10x3/uL (4.8-10.8)
--- NOTE | 2019-05-18 04:59 | NUR ---
PT HAD A BATH EARLIER. NURSE GAVE PT A CLIP AND SHAVE OF FACE. PT SMILING AND DENIES ANY OTHER NEEDS. NO S/S OF DISTRESS. BED LOW AND CALL LIGHT IN REACH. WILL CPOC
[2019-05-18 05:05] LABS: ANION GAP 14.4 mmol/L (8-16); CALCIUM 7.9 mg/dL (8.5-10.1); CARBON DIOXIDE 24.9 mmol/L (21.0-32.0); CREATININE - SERUM 1.1 mg/dL (0.6-1.3); MAGNESIUM - SERUM 1.6 mg/dL (1.8-2.4); PHOSPHOROUS 2.9 mg/dL (2.5-4.9); POTASSIUM - SERUM 3.3 mmol/L (3.5-5.1)
--- NOTE | 2019-05-18 05:52 | NUR ---
PT GIVEN POTASSIUM 10 MEQ AT A TIME TO BE A TOTAL OF 4 STARTING NOW FOR A POTASSIUM OF 3.3 MAG GIVEN 2GM FOR A MAG OF 1.6 ONE TIME DOSE TO BE RECHECKED IN AM. 10MG HYDRALAZINE GIVEN FOR BP OF 192/87 PT VERBALIZED UNDERSTANDING. WILL CPOC
--- NOTE | 2019-05-18 07:10 | NUR ---
MAG COMPLETE. 2ND BAG OF POTASSIUM STARTED. PT USING URINAL
--- NOTE | 2019-05-18 07:54 | NUR ---
PT ALERT AND ORIENTED X4. RESTING IN BED. PT NPO DUE TO ASPIRATION PERCUATIONS AND AWAITING A POSSIABLE PEG TUBE PLACEMENT. RR EVEN AND UNLABORED. NO S/S OF DISTRESS. BED LOW CALL LIGHT WITHIN REACH. WILL CONTINUE TO MONITOR.
[2019-05-18 08:30] VITALS: BP 171/72
--- NOTE | 2019-05-18 09:49 | NUR ---
LAST K+ BAG HUNG. PT ALERT AND ORIENTED X4. NO S/S OF DISTRESS. WILL CONTINUE TO MONTIOR.
--- NOTE | 2019-05-18 11:58 | NUR ---
OT NOTE: PT DOING MUCH BETTER TODAY. ORIENTED X 3 AND LESS CONFUSION NOTED. BED MOB WITH MIN ASSIST; ABLE TO PAULETTE/DOFF GOWN WITH MIN ASSIST; MOD/MAX WITH DONNING SOCKS AND INCREASED DIFFICULTY MAINTAINING SITTING BALANCE ON EOB FOR LE DRESSING. SIMPLE GROOMING WITH SET UP. ABLE TO PERFORM IN ROOM AMBULATION WITH WALKER AND MIN ASSIST..DIFFICULTY ADVANCING L LE AND PT EXPLAINED THAT IT WAS FROM A PREVIOUS ACCIDENT. MARY URIOSTEGUI, OTR/L
[2019-05-18 12:44] VITALS: BP 173/85
--- NOTE | 2019-05-18 14:49 | NUR ---
Nutrition follow-up: Pt remains NPO; family still deciding on PEG placement. 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 If PEG tube placed, recommend staring Osmolite 1.5 ayse @ 20 ml/hr with very slow increase to goal rate of 50 ml/hr. Pt will be high risk for refeeding syndrome due to advance age with NPO > 5 days. RDN following.
--- NOTE | 2019-05-18 15:25 | NUR ---
RESTS IN BED WITH EYES CLOSED. PROCALAMINE INFUSING. CALL LIGHT IN REACH.
[2019-05-18 16:30] VITALS: BP 166/65
--- NOTE | 2019-05-18 16:49 | NUR ---
I have reviewed this patient and I concur with the Shift Assessment completed by the Licensed Practical Nurse today this shift.
--- NOTE | 2019-05-18 16:51 | TEE ---
PATIENT:CASSIE MONROY MEDICAL RECORD: [id number] LOCATION:D. D.213 AGE OF PATIENT: 78 ADMISSION DATE: 05/11/19 SEX: M REFERRING PHYSICIAN: INTERPRETING PHYSICIAN: JANEE KAPADIA MD TRANSESOPHAGEAL ECHOCARDIOGRAM Date: 05/15/19 CIARA CHARGE Y INDICATIONS: R/O ENDOCARDITIS PREMEDICATIONS: PATIENT'S RESPONSE PROCEDURE DOPPLER MEASUREMENTS: LVIT LA PA 102 RA LVOT 144 RVOT 69 Asc. 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 Kapadia Director Of National Sales: Ellis ARCEO COMMENTS: DATE OF SERVICE: 05/15/2019 PROCEDURE: Transesophageal echo. INDICATIONS: Bacteremia, evaluate for endocarditis. PROCEDURE IN DETAIL: Informed consent obtained, after detailed discussion of the risks, benefits as well as alternative therapies, the patient elected to proceed with transesophageal echo. TRANSESOPHAGEAL ECHOCARDIOGRAM REPORT [id number] CASSIE MONROY IV conscious sedation was per anesthesia. Continuous heart rate, O2 saturation, blood pressure monitoring all undertaken, all of which remained stable during the procedure. FINDINGS: 1. Left ventricular chamber size is within normal limits. Left ventricular systolic function is normal. Overall ejection fraction estimated at 60%. 2. Left atrium, right atrium, right ventricular chamber size is within normal limits. 3. Valvular structures have normal structure and motion. No evidence of vegetative endocarditis. 4. Doppler interrogation reveals no significant valvular insufficiency or stenosis. 5. No evidence of pericardial effusion or left ventricular thrombus. OVERALL IMPRESSION: No evidence of vegetative endocarditis. TRANSINT:[id number] Voice Confirmation ID: [id number] DOCUMENT ID: [id number] at 1651 CC: [id number] DICTATION DATE: 05/15/19 1237 BOOM TENDER: 05/15/19 2301 ADM IN [place] [id number] [place] [address]
--- NOTE | 2019-05-18 19:20 | NUR ---
PT IS RESTING IN BED WITH EYES OPEN. ALERT AND ORIENTED X 3. DENIES ACUTE DISTRESS AT THIS TIME. PTS SPEECH IS SOMEWHAT GARBLED, BUT IS CLEAR ENOUGH TO UNDERSTAND EVERYTHING HE SAYS. O2 IS ON @ 2LPM PER NC. NO SOB NOTED. PT USING YANKEUR SUCTION PRN INDEPENDENTLY. PT IS NPO FOR PEG TUBE PLACEMENT IN THE AM. RIGHT ARM PICC LINE IS INFUSING WITHOUT DIFFICULTY. RIGHT WRIST SALINE LOCK NOTED. SR'S ARE UP X 2 IN BED. CALL LIGHT AND BEDSIDE TABLE ARE WITHIN EASY REACH.
[2019-05-18 20:00] VITALS: BP 168/74
--- NOTE | 2019-05-18 22:33 | NUR ---
PT IS RESTING IN BED WATCHING TV. NO ACUTE DISTRESS NOTED. USING URINAL PRN.
[2019-05-19] VITALS: BP 189/86
--- NOTE | 2019-05-19 01:57 | NUR ---
RESTING IN BED WITH EYES CLOSED.
[2019-05-19 04:00] VITALS: BP 176/57
--- NOTE | 2019-05-19 04:42 | NUR ---
MORNING LABS TAKEN FROM RIGHT UPPER ARM PICC. PT COMPLAINS ABOUT RIGHT WRIST 22G PIV. IT IS NOT BEING USED AND PT WANTS IT REMOVED. NURSE REMOVED RIGHT WRIST PIV WITH CATH INTACT. PT DENIES ANY OTHER NEEDS AT THIS TIME. WILL CPOC
[2019-05-19 05:02] LABS: BASOPHILS 0 % (0-2); EOSINOPHILS 3.5 % (0-7); HEMATOCRIT 33.5 % (42.0-54.0); HEMOGLOBIN 11.3 g/dL (13.5-17.5); IMMATURE GRANULOCYTES 1.2 % (0-5); LYMPHOCYTES 20.7 % (15-50); MCH 31.7 pg (26.0-34.0); MCHC 33.7 g/dL (31.0-37.0); MCV 93.8 fL (80.0-100.0); MEAN PLATELET VOLUME 9.8 fL (7.4-10.4); MONOCYTES 12.8 % (2-11); NEUTROPHILS 61.8 % (40-80); PLATELET COUNT 198 10x3/uL (130-400); RBC 3.57 10x6/uL (4.20-6.10); RDW 14.2 % (11.5-14.5); WBC 4.9 10x3/uL (4.8-10.8)
[2019-05-19 05:11] LABS: CALC OSMOLALITY 286 mosm/kg (275-300); CALCIUM 7.7 mg/dL (8.5-10.1); CHLORIDE - SERUM 111 mmol/L (98-107); GLUCOSE 108 mg/dL (74-106); MAGNESIUM - SERUM 1.5 mg/dL (1.8-2.4); PHOSPHOROUS 2.7 mg/dL (2.5-4.9); POTASSIUM - SERUM 3.3 mmol/L (3.5-5.1); SODIUM 143 mmol/L (136-145); UREA NITROGEN 16 mg/dL (7-18); eGFR NON AFRICAN AMERICAN 76 mL/min (90-120)
--- NOTE | 2019-05-19 08:15 | NUR ---
PRE OP GIVEN ORDERED AND PT TO GI LAB VIA BED FOR PEG TUBE PLACEMENT.
[2019-05-19 08:31] VITALS: BP 177/72
--- NOTE | 2019-05-19 09:35 | NUR ---
PT RECEIVED BACK TO ROOM VIA BED. A/A/OX4. PEG TUBE IN PLACE AND SECURED WITH TAPE. PT DENIES ANY PAIN OR DISCOMFORT AT PRESENT TIME AND VOICES NO REQUESTS. COUGHING UP SOME THICK CLEAR SPUTUM AND USES YANKER SUCTION. PICC LINE PATENT TO RIGHT UPPER ARM AND IVS INFUSING WELL. INCONTINENT OF BLADDER AND LINENS CHANGED.
[2019-05-19 16:42] VITALS: BP 109/76
[2019-05-19 20:00] VITALS: BP 176/72
--- NOTE | 2019-05-19 23:28 | NUR ---
INITIAL ROUNDS COMPLETED AT 1900 HRS. PT SPILLED URINAL. BED LINENS CHANGED. ASSESSMENT COMPLETED [id number] HRS. VSS. PT ALERT AND ORIENTED TO PERSON, PLACE AND TIME. MILLS. SPEECH SLOW AND DELIBERATE. PT KWADWO IS HIS R THUMB. PICC LINE TO RAC WITH NS AT 20CC/HR AND PROCLAMINE AT 75CC/HR. IV PATENT. LUNGS DIMINSHED IN BASES BILAT. ABD SOFT WITH ACTIVE BS NOTED. BRUISES NOTED TO BILAT ARMS. 1+ PEDAL EDEMA NOTED. PEG TUBE NOTED. PM MEDS GIVEN VIA PEG. PT CURRENTLY RESTING WTIH EYES CLOSED. RESP EVEN AND REGULAR. SR UP X2, CALL LIGHT WITHIN REACH AND BED ALRM ON.
[2019-05-20] VITALS: BP 172/70
--- NOTE | 2019-05-20 00:15 | NUR ---
PT INCONTINENT OF LOOSE STOOL. INCONTINENT CARE DONE. SR UP X2, CALL LIGHT WITHIN REACH AND BED ALRM ON.
--- NOTE | 2019-05-20 01:34 | NUR ---
pt arrived via w/c. no distress noted.
--- NOTE | 2019-05-20 02:19 | NUR ---
PT RESTING WITH EYES CLOSED. RESP EVEN AND REGULAR. SR UP X2, CALL LIGHT WITHIN REACH.
[2019-05-20 04:00] VITALS: BP 176/76
--- NOTE | 2019-05-20 04:04 | NUR ---
PT AWAKE; DENIES ANY DISCOMFORT. NO CHANGES TO NEURO STATUS NOTED. SR UP X2, CALL LIGHT WITHIN REACH.
[2019-05-20 06:03] LABS: BASOPHILS 0.2 % (0-2); EOSINOPHILS 3.5 % (0-7); HEMATOCRIT 32.1 % (42.0-54.0); HEMOGLOBIN 10.6 g/dL (13.5-17.5); IMMATURE GRANULOCYTES 0.5 % (0-5); LYMPHOCYTES 17.2 % (15-50); MCH 31.3 pg (26.0-34.0); MCV 94.7 fL (80.0-100.0); MEAN PLATELET VOLUME 9.8 fL (7.4-10.4); MONOCYTES 13.7 % (2-11); NEUTROPHILS 64.9 % (40-80); PLATELET COUNT 222 10x3/uL (130-400); RBC 3.39 10x6/uL (4.20-6.10); RDW 14.2 % (11.5-14.5); WBC 5.7 10x3/uL (4.8-10.8)
[2019-05-20 06:11] LABS: CALC OSMOLALITY 287 mosm/kg (275-300); CALCIUM 7.8 mg/dL (8.5-10.1); CARBON DIOXIDE 25.4 mmol/L (21.0-32.0); CHLORIDE - SERUM 109 mmol/L (98-107); GLUCOSE 118 mg/dL (74-106); POTASSIUM - SERUM 3.3 mmol/L (3.5-5.1); SODIUM 143 mmol/L (136-145); UREA NITROGEN 18 mg/dL (7-18); eGFR NON AFRICAN AMERICAN 76 mL/min (90-120)
--- NOTE | 2019-05-20 06:30 | NUR ---
VSS THROUGHOUT NIGHT. PT DENIED ANY DISCOMFORT. AM K+ 3.3. TO TREAT PER ELECTROLYTE PROTOCOL. NEEDS MET; WILL CONTINUE TO MONITOR.
[2019-05-20 07:46] VITALS: BP 158/97
--- NOTE | 2019-05-20 08:00 | NUR ---
A/A/OX4. DENIES ANY PAIN OR DISCOMFORT AT PRESENT TIME, BUT DOES C/O FEELING HUNGRY. WILL ASK FOR TUBE FEEDING ORDERS TODAY. PEG TUBE IS PATENT AND PLACEMENT CHECKED. IV PATENT TO RIGHT UPPER ARM PER PICC LINE. INFUSING WELL WTIH NO PROBLEMS OBSERVED. ASSESSMENT COMPLETED AND WILL CONTINUE POC. BED IN LOW POSITION AND CALL LIGHT IN REACH. CLARENCE BED ALARM IN USE AND WORKING PROPERLY.
[2019-05-20 12:00] VITALS: BP 148/93
--- NOTE | 2019-05-20 12:13 | NUR ---
NUTRITION F/U RECEIVED CONSULT TO START TUBE FEEDS PER PEG. SPOKE WITH NURSING. ORDERED TUBE FEEDS OSMOLITE 1.5 SENIA, ENTERED NURSING MESSAGE WITH INSTRUCTIONS FOR GOAL RATE 50 CC/HR. DECREASE PROCALAMINE RATE TO 35 CC/HR WHEN TUBE FEEDS START. RD FOLLOWING
--- NOTE | 2019-05-20 13:56 | NUR ---
TUBE FEEDING STARTED AT RATES ORDERED.
--- NOTE | 2019-05-20 14:45 | NUR ---
I have reviewed this patient and I concur with the Shift Assessment completed by the Licensed Practical Nurse today this shift.
[2019-05-20 16:00] VITALS: BP 169/76
--- NOTE | 2019-05-20 19:00 | NUR ---
PATIENT LAYING IN BED. PATIENT HAS NO COMPLAINTS AT THIS TIME. NO DISTRESS NOTED.
[2019-05-20 20:00] VITALS: BP 102/75
--- NOTE | 2019-05-20 21:23 | NUR ---
PATIENT LAYING IN BED. EYES CLOSED, CHEST RISING AND FALLING. NO DISTRESS NOTED.
--- NOTE | 2019-05-21 00:05 | NUR ---
I have reviewed this patient and I concur with the Shift Assessment completed by the Licensed Practical Nurse today this shift.
[2019-05-21 00:07] VITALS: BP 135/87
--- NOTE | 2019-05-21 01:30 | NUR ---
PATIENT SITTING UP TO SIDE OF BED. PATIENT USING URINAL. PATIENT EDUCATED ON FALL RISK AND SAFETY. PATIENT VERBALIZED UNDERSTAND. PATIENT HAS NO COMPLAINTS AT THIS TIME. NO DISTRESS NOTED.
[2019-05-21 04:00] VITALS: BP 147/68
[2019-05-21 04:39] LABS: BASOPHILS 0.2 % (0-2); HEMATOCRIT 32.2 % (42.0-54.0); HEMOGLOBIN 10.7 g/dL (13.5-17.5); IMMATURE GRANULOCYTES 0.6 % (0-5); LYMPHOCYTES 16.9 % (15-50); MCH 31.1 pg (26.0-34.0); MCHC 33.2 g/dL (31.0-37.0); MCV 93.6 fL (80.0-100.0); MEAN PLATELET VOLUME 9.8 fL (7.4-10.4); MONOCYTES 14.4 % (2-11); NEUTROPHILS 65.9 % (40-80); PLATELET COUNT 223 10x3/uL (130-400); RBC 3.44 10x6/uL (4.20-6.10); RDW 14.2 % (11.5-14.5); WBC 6.5 10x3/uL (4.8-10.8)
[2019-05-21 05:00] LABS: CALCIUM 7.7 mg/dL (8.5-10.1); CHLORIDE - SERUM 109 mmol/L (98-107); MAGNESIUM - SERUM 1.6 mg/dL (1.8-2.4); SODIUM 143 mmol/L (136-145); UREA NITROGEN 18 mg/dL (7-18); eGFR NON AFRICAN AMERICAN 76 mL/min (90-120)
[2019-05-21 05:10] LABS: CALC OSMOLALITY 290 mosm/kg (275-300); GLUCOSE 166 mg/dL (74-106); POTASSIUM - SERUM 3.4 mmol/L (3.5-5.1)
--- NOTE | 2019-05-21 07:13 | NUR ---
ALERT AND ORIENTED. LUNGS CLEAR BILATERALLY IN ALL GARCÍA. HEART SOUNDS S1 AND S2 HEARD IN ALL GARCÍA. BOWEL SOUNDS ACTIVE X 4. SKIN INTACT WITHOUT REDNESS. ANDREW PICC PATENT WITHOUT REDNESS. PEG TUBE PATENT WITHOUT REDNESS. RIGHT THUMB AMPUTATION NOTED. FALL PRECAUTIONS IN PLACE. BED LOW. CALL SHAW AND PERSONAL ITEMS IN REACH. WILL CONTINUE TO MONITOR.
[2019-05-21 08:27] VITALS: BP 134/68
--- NOTE | 2019-05-21 09:38 | NUR ---
RESTING IN BED. FRIENDS AT BEDSIDE. DENIES PAIN. DENIES NEEDS. WILL CONTINUE TO MONITOR.
--- NOTE | 2019-05-21 12:12 | NUR ---
PATIENT SLEEPING. WILL CONTINUE TO MONITOR.
[2019-05-21 12:22] VITALS: BP 133/65
--- NOTE | 2019-05-21 13:15 | NUR ---
Nutrition follow-up: PEG tube placed and Osmolite 1.5 ayse started with gradual increase to goal rate of 50 ml/hr; 25 ml H2O flush Q hour ProcalAmine PPN discontinued Labs reviewed; K, Mg low and being replaced Pt remains at high refeeding risk RDN following.
--- NOTE | 2019-05-21 13:25 | NUR ---
OT NOTE: PT REFUSED EARLIER IN AM, HOWEVER, LATER IN THE MORNING, PT REMEMBERED THAT I WAS WITH THERAPY AND STATED THAT HE WANTED TO GET UP AND DO THERAPY, BUT WANTING TO GET BATH FIRST. EXPLAINED TO PT THAT I COULD ASSIST HIM WITH BATHING, BUT HE DID NOT WANT FEMALE TO HELP HIM WITH IT. REPORTED THAT HE HAD A HEADACHE, HOWEVER, NURSING STATED THAT HE HAD NO ORDER FOR ANYTHING FOR HEADACHE. BED MOB WITH MIN ASSIST. APPEARED TO HAVE INCREASED DROOPING TO R SIDE OF MOUTH, HOWEVER, SPEECH WAS UNCHANGED FROM LAST WEEK AND HE PRESENTED WITH GOOD MOVEMENT TO R SIDE. MARY URIOSTEGUI, OTR/L
--- NOTE | 2019-05-21 14:40 | NUR ---
RESTING IN BED. BED BATH GIVEN PER REQUEST. DENIES FURTHER NEEDS. WILL CONTINUE TO MONITOR.
--- NOTE | 2019-05-21 15:46 | NUR ---
OT NOTE: PT COMPLETED SIDE ROLLING AND BED MOB TASKS WITH MIN/MOD A. PT COMPLETED BUE AROM EXS. PT COMPLETED ORAL HYGIENE TASKS WITH MIN A USING TOOTHETTE. PT COMPLETED FACE WASH WITH SET UP. THANK YOU, MIK JAQUEZ
--- NOTE | 2019-05-21 16:37 | NUR ---
PATIENT SLEEPING. WILL CONTINUE TO MONITOR.
[2019-05-21 16:44] VITALS: BP 130/62
--- NOTE | 2019-05-21 18:24 | NUR ---
RESTING IN BED. DENIES PAIN. DENIES NEEDS. FALL PRECAUTIONS IN PLACE. BED LOW. CALL SHAW AND PERSONAL ITEMS IN REACH.
[2019-05-21 20:00] VITALS: BP 160/80
[2019-05-22] VITALS: BP 159/87
--- NOTE | 2019-05-22 02:32 | NUR ---
PATIENT LAYING IN BED. EYES CLOSED, CHEST RISING AND FALLING. NO DISTRESS NOTED.
[2019-05-22 04:00] VITALS: BP 153/89
--- NOTE | 2019-05-22 05:15 | NUR ---
I have reviewed this patient and I concur with the Shift Assessment completed by the Licensed Practical Nurse today this shift.
[2019-05-22 05:19] LABS: BASOPHILS 0.1 % (0-2); EOSINOPHILS 1.7 % (0-7); HEMATOCRIT 30.5 % (42.0-54.0); HEMOGLOBIN 10.3 g/dL (13.5-17.5); IMMATURE GRANULOCYTES 0.7 % (0-5); LYMPHOCYTES 16.7 % (15-50); MCH 31.6 pg (26.0-34.0); MCHC 33.8 g/dL (31.0-37.0); MCV 93.6 fL (80.0-100.0); MONOCYTES 14.7 % (2-11); NEUTROPHILS 66.1 % (40-80); PLATELET COUNT 223 10x3/uL (130-400); RBC 3.26 10x6/uL (4.20-6.10); RDW 14.4 % (11.5-14.5); WBC 7.3 10x3/uL (4.8-10.8)
[2019-05-22 05:30] LABS: CALC OSMOLALITY 289 mosm/kg (275-300); CALCIUM 7.6 mg/dL (8.5-10.1); CARBON DIOXIDE 25.9 mmol/L (21.0-32.0); CHLORIDE - SERUM 109 mmol/L (98-107); GLUCOSE 177 mg/dL (74-106); POTASSIUM - SERUM 3.5 mmol/L (3.5-5.1); SODIUM 143 mmol/L (136-145); UREA NITROGEN 15 mg/dL (7-18); eGFR NON AFRICAN AMERICAN 76 mL/min (90-120)
--- NOTE | 2019-05-22 07:00 | NUR ---
RECEIVED REPORT. ASSUMED CARE OF PATIENT. CALL LIGHT WITHIN REACH. PATIENT WITH EYES OPEN. SPEECH CAN BE DIFFICULT TO UNDERSTAND AT TIMES BUT ONCE REPEATED, ABLE TO MAKE OUT WHAT PATIENT IS SAYING. GT PATENT. PATIENT IS NPO. NO DISTRESS. PATIENT WITH YANKER.
[2019-05-22 08:00] VITALS: BP 161/96
--- NOTE | 2019-05-22 08:33 | MORECARE ---
CASE MANAGEMENT DISCHARGE SUMMARY PATIENT: CASSIE MONROY UNIT: [id number] ADM DATE: 05/11/19 AGE: 78 : 39 SEX: M ROOM/BED: D.8658 AUTHOR: CLARIBEL,DOC PHYSICIAN: REFERRING PHYSICIAN: DEB RUELAS MD DATE OF SERVICE: 05/22/19 Discharge Plan Patient Name: CASSIE MONROY [facility] [facility] 1940 Planned Disposition: Inpatient Rehab Anticipated Discharge Date: Discharge Date: Expected LOS: Initial Reviewer: [id number] Initial Review Date: 05/11/2019 Generated: 05/22/19 9:33 am DCP- Discharge Planning Updated by [email or web address]: Ernesto Blanchard on 05/16/19 11:[address] Patient Name: CASSIE MONROY Encounter No: [id number] : 1940 Primary Insurance: MEDICARE A & B Anticipated DC Date: Planned Disposition: Inpatient Rehab External Planned Provider: [facility] DCP follow-up note: CM SPOKE TO BEDSIDE NURSE WHO HAS TALKED WITH PT'S SON AND PT'S SON ASKED TO SPEAK TO BOWLING BALL WEIGHER AND PACKER. CM CALLED GUSTAVO MONROY, PT'S SON, ; GUSTAVO IS THE ONLY CHILD. PT IS NOT . PT DOES HAVE A BROTHER AND BROTHER'S , YUMIKO AND NELA MONROY. GUSTAVO REPORTS IT IS OK TO DISCUSS PT'S CARE AND PLANNING WITH THEM, BUT GUSTAVO WILL BE MAKING MEDICAL DECISIONS. GUSTAVO IS CONSIDERING HAVING A FEEDING TUBE PUT INTO PATIENT. GUSTAVO ALSO REPORTS THAT IF PT IS DECLINED REHAB AT [facility], HE WANTS PT REFERRED TO [facility] IN [place] IF PT NEEDS REHAB. CHOICE COMPLETED FOR ANY [facility] FACILITY IN [place]. GUSTAVO REPORTS THAT THE EMERGENCY CONTACT LISTED ON FACE SHEET, MARCY HEALY, IS . PT'S SON IS CONSIDERING FEEDING TUBE WELL [facility]AC[facility] IN [place] IF PT IS NOT ACCEPTED FOR INPATIENT REHAB. PT'S SON IS GUSTAVO MONROY, ; GUSTAVO LIVES IN [place] AND IS 2 HOURS BEHIND OUR TIME. Ernesto Blanchard, CASE MANAGEMENT DCP- Discharge Planning Updated by [id number]: Ernesto Blanchard on 05/11/19 4:[address] Patient Name: CASSIE MONROY Admission Status: ER Accout number: [id number] Admission Date: 05-11-2019 : 1940 Admission Diagnosis: Attending: DEB RUELAS Current LOS: 1 Anticipated DC Date: Planned Disposition: Inpatient Rehab Primary Insurance: MEDICARE A & B PLANNED EXTERNAL PROVIDER: [facility] DCP follow-up note: CM RECEIVED ORDER FOR INPATIENT REHAB PRESCEENING. CM MET WITH PT IN ROOM TO DISCUSS DISCHARGE PLANNING AND NEEDS. PT REPORTS LIVING AT HOME INDEPENDENTLY AND ALONE. PT HAS A WALKER WITH NO MEDICAL EQUIPMENT PROVIDER PRFERENCE. PT HAS NO OUTSIDE SERVICES ASSISTING IN THE HOME. CM DISCUSSED AVAILABILITY OF HOME HEALTH, REHAB SERVICES AND MEDICAL EQUIPMENT. PT WOULD LIKE REHAB AT [facility]. CM WAITING RESULTS OF INPATIENT REHAB PRESCREENING AND ADMISSION DETERMINATION. ERNESTO BLANCHARD, CASE MANAGEMENT DCPIA - Discharge Planning Initial Assessment Updated by [id number]: Ernesto Blanchard on 05/16/19 12:02 pm * Is the patient Alert and Oriented? Yes * How many steps to enter\exit or inside your home? * PCP DR. CHEN ?? IN [place] * Pharmacy ?? IN [place] * Preadmission Environment Home Alone * ADLs Independent * Equipment Walker * Other Equipment NO MEDICAL EQUIPMENT PROVIDER PREFERENCE * List name and contact numbers for known caregivers / representatives who currently or will assist patient after discharge: GUSTAVO MONROY, EDMUND, * Verbal permission to speak to the caregivers and representatives has been obtained from the patient. N/A * Community resources currently utilized None * Please name any agencies selected above. NONE * Additional services required to return to the preadmission environment? Yes * Can the patient safely return to the preadmission environment? Yes * Has this patient been hospitalized within the prior 30 days at any hospital? No Coverage Notice Reviewer: [id number] - Ernesto Blanchard Notice Issued Date-Time: 05/16/2019 11:00 Notice Type: Patient Choice Letter Notice Delivered To: Family Member Relationship to Patient: Son Chief Controller Name: GUSTAVO MONROY Delivery Method: HAND - Hand Delivered Linda Days: Prior Verbal Notification: Recipient Understood Notice: Yes Recipient Signature: Yes Med Rec Note Co-signed by Attending: Coverage Notice Comment: ANY SNF IN [place] Last DP export: 05/16/19 11:10 a Patient Name: CASSIE MONROY Page [id number] at 0833 All edits/amendments must be made on the electronic document DICTATION DATE: 05/22/19832 DOGMAN/WOMAN: KARON 05/22/19832 RPT#: [id number] DC DATE: STATUS: ADM IN [facility] [address] [place] [address] END OF REPORT
--- NOTE | 2019-05-22 11:11 | NUR ---
OOB WITH PHYSICAL THERAPY. SITTING IN CHAIR AT BEDSIDE AT THIS TIME. CALL LIGHT AND PERSONAL CELL PHONE WITHIN REACH. NO DISTRESS.
[2019-05-22 12:38] VITALS: BP 146/78
--- NOTE | 2019-05-22 13:33 | NUR ---
PATIENT ASSISTED BACK TO TO BED BY THERAPY AT THIS TIME. NO DISTRESS.
--- NOTE | 2019-05-22 15:29 | NUR ---
HOB ELEVATED >30 DEGREES. RESTING WITH EYES CLOSED. RESP EVEN AND UNLABORED. NO DISTRESS.
[2019-05-22 15:48] VITALS: BP 129/86
--- NOTE | 2019-05-22 16:09 | NUR ---
OT NOTE: PT PERFORMED WELL. ABLE TO AMB FROM BED TO BATHROOM WITH MIN ASSIST AND USE OF WALKER; MOD ASSIST WITH TRANSFER TO TOILET; MAX ASSIST WITH TOILET HYGIENE; MOD ASSIST WITH CLOTHING MGMT; SET UP FOR WASHING HANDS AND FACE WITH WASH CLOTH. IN ROOM AMBULATION WITH WALKER, GAIT BELT, IV, AND MIN/MOD ASSIST. BACK TO BED WITH MOD ASSIST; PERFORMED UE AROM EXS WITH MODERATE REST BREAKS REQUIRED. MARY URIOSTEGUI, OTR/L
--- NOTE | 2019-05-22 16:41 | NUR ---
OT NOTE: PT COMPLETED BED MOB TASKS WITH MIN/MOD A. PT COMPLETED BED TO CHAIR TRANSFER WITH MIN A. PT COMPLETED BATHING TASKS WITH MAX A. THANK YOU, MIK JAQUEZ
--- NOTE | 2019-05-22 19:00 | NUR ---
PATIENT LAYING IN BED. EYES CLOSED, CHEST RISING AND FALLING. NO DISTRESS NOTED.
[2019-05-22 20:00] VITALS: BP 152/65
[2019-05-23] VITALS: BP 125/59
--- NOTE | 2019-05-23 01:41 | NUR ---
I have reviewed this patient and I concur with the Shift Assessment completed by the Licensed Practical Nurse today this shift.
--- NOTE | 2019-05-23 02:01 | NUR ---
PATIENT LAYING IN BED, EYES CLOSED, CHEST RISING AND FALLING. NO DISTRESS NOTED.
[2019-05-23 04:00] VITALS: BP 149/69
[2019-05-23 05:33] LABS: BASOPHILS 0.1 % (0-2); EOSINOPHILS 1.9 % (0-7); HEMATOCRIT 27.3 % (42.0-54.0); HEMOGLOBIN 9.1 g/dL (13.5-17.5); IMMATURE GRANULOCYTES 0.5 % (0-5); LYMPHOCYTES 17.6 % (15-50); MCH 31.4 pg (26.0-34.0); MCHC 33.3 g/dL (31.0-37.0); MCV 94.1 fL (80.0-100.0); NEUTROPHILS 66.9 % (40-80); PLATELET COUNT 221 10x3/uL (130-400); RDW 14.5 % (11.5-14.5); WBC 8.1 10x3/uL (4.8-10.8)
--- NOTE | 2019-05-23 05:41 | NUR ---
PATIENT LAYING IN BED, EYES CLOSED, CHEST RISING AND FALLING. NO DISTRESS NOTED.
[2019-05-23 05:45] LABS: ALBUMIN 2.1 g/dL (3.4-5.0); ANION GAP 9.8 mmol/L (8-16); BILIRUBIN - TOTAL 0.94 mg/dL (0.2-1.3); CALCIUM 7.7 mg/dL (8.5-10.1); CARBON DIOXIDE 27.4 mmol/L (21.0-32.0); CREATININE - SERUM 1.2 mg/dL (0.6-1.3); MAGNESIUM - SERUM 1.6 mg/dL (1.8-2.4); PHOSPHOROUS 3.4 mg/dL (2.5-4.9); POTASSIUM - SERUM 3.2 mmol/L (3.5-5.1); PROTEIN - SERUM 5.4 g/dL (6.4-8.2)
--- NOTE | 2019-05-23 07:23 | NUR ---
INITIAL ROUNDING, INTRTODUCTIONS MADE, WHITE BOARD UPDATED. CALL LIGHT IN REACH. HOB AT 40 DEGREES, TUBE FEED INFUSING AT 50ML/HR. MAG INFUSING COMPLETE, WILL RECHECK MAG LEVEL IN AM PER PROTOCOL. K+ IBPB INFUSING AT THIS TIME, FIRST OF TWO BAGS TO BE GIVEN PER PROTOCOL.
--- NOTE | 2019-05-23 07:40 | NUR ---
REPOSITIONED PATIENT IN BED, HOB AT 40 DEGREES, PATIENT ASSISTED WITH THE URINAL. CALL LIGHT IN REACH
[2019-05-23 08:44] VITALS: BP 154/62
[2019-05-23 12:27] VITALS: BP 151/56
--- NOTE | 2019-05-23 12:56 | NUR ---
Nutrition Follow-up: Pt receiving Osmolite 1.5 @ 50 mL/hr. BM: 05/23 No new wt Labs noted: Alb 2.1, Mg 1.6, Ca 7.7, Glu 196, K 3.2 Meds noted: Mg Sulfate, KCl RD following.
[2019-05-23] MEDS ORDERED: COREG 3.1253.125 MG PO (14:32)
[2019-05-23] MEDS ORDERED: NAFCILLIN 2 GM/N2 G1 IV (14:32)
[2019-05-23] MEDS ORDERED: LOVENOX40 MG/0.4 SC (14:32)
--- NOTE | 2019-05-23 14:32 | MORECARE ---
CASE MANAGEMENT DISCHARGE SUMMARY PATIENT: CASSIE MONROY UNIT: [id number] ADM DATE: 05/11/19 AGE: 78 : 39 SEX: M ROOM/BED: D.2138 AUTHOR: KEYON SANFORD PHYSICIAN: REFERRING PHYSICIAN: DEB RUELAS MD DATE OF SERVICE: 05/23/19 Discharge Plan Patient Name: CASSIE MONROY [facility] [facility] 1940 Planned Disposition: Inpatient Rehab Anticipated Discharge Date: 05/23/19 Discharge Date: Expected LOS: 12 Initial Reviewer: [id number] Initial Review Date: 05/11/2019 Generated: 05/23/19 3:31 pm Comments DCP- Discharge Planning Updated by [id number]: Ernesto Recinos on 05/23/19 1:[address] Patient Name: CASSIE MONROY Encounter No: [id number] : 1940 Primary Insurance: MEDICARE A & B Anticipated DC Date: 05-23-2019 Planned Disposition: Inpatient Rehab External Planned Provider: [facility] DCP follow-up note: CM SPOKE TO RN ALBINA ZHANG WHO INFORMED CM THAT [facility] PLANS TO DISCHARGE PT TODAY TO REHAB. CM SPOKE TO PT IN ROOM WHO IS IN AGREEMENT WITH DISCHARGE TO INPATIENT REHAB TODAY. IMPORTANT MESSAGE FROM MEDICARE PROVIDED AND EXPLAINED. JADON ZHANG SPOKE TO DEB OF INPATIENT REHAB, PT ACCEPTED TO ROOM 1117-A FOR INPATIENT REHAB AT [place], PUMPER GAUGER NURSE NOTIFIED. [facility] READY TO ACCEPT PT AND NURSE REPORT. SHERICE Spann DCP- Discharge Planning Updated by [id number]: Ernesto Recinos on 05/16/19 11:[address] Patient Name: CASSIE MONROY Encounter No: [id number] : 1940 Primary Insurance: MEDICARE A & B Anticipated DC Date: Planned Disposition: Inpatient Rehab External Planned Provider: [facility] DCP follow-up note: CM SPOKE TO BEDSIDE NURSE WHO HAS TALKED WITH PT'S SON AND PT'S SON ASKED TO SPEAK TO FOOD PHOTOGRAPHER. CM CALLED GUSTAVO MONROY, PT'S SON, ; GUSTAVO IS THE ONLY CHILD. PT IS NOT . PT DOES HAVE A BROTHER AND BROTHER'S , YUMIKO AND NELA MONROY. GUSTAVO REPORTS IT IS OK TO DISCUSS PT'S CARE AND PLANNING WITH THEM, BUT GUSTAVO WILL BE MAKING MEDICAL DECISIONS. GUSTAVO IS CONSIDERING HAVING A FEEDING TUBE PUT INTO PATIENT. GUSTAVO ALSO REPORTS THAT IF PT IS DECLINED REHAB AT [place], HE WANTS PT REFERRED TO ALF REHAB IN [place] IF PT NEEDS REHAB. CHOICE COMPLETED FOR ANY ALF FACILITY IN [place]. GUSTAVO REPORTS THAT THE EMERGENCY CONTACT LISTED ON FACE SHEET, MARCY JACOBYSue, IS . PT'S SON IS CONSIDERING FEEDING TUBE WELL ALF REHAB PLACEMENT IN [place] IF PT IS NOT ACCEPTED FOR INPATIENT REHAB. PT'S SON IS GUSTAVO MONROY, ; GUSTAVO LIVES IN [place] AND IS 2 HOURS BEHIND OUR TIME. Ernesto Recinos CASE MANAGEMENT DCP- Discharge Planning Updated by [id number]: Ernesto Recinos on 05/11/19 4:[address] Patient Name: CASSIE MONROY Admission Status: ER Accout number: [id number] Admission Date: 05-11-2019 : 1940 Admission Diagnosis: Attending: DEB RUELAS Current LOS: 1 Anticipated DC Date: Planned Disposition: Inpatient Rehab Primary Insurance: MEDICARE A & B PLANNED EXTERNAL PROVIDER: [facility] DCP follow-up note: CM RECEIVED ORDER FOR INPATIENT REHAB PRESCEENING. CM MET WITH PT IN ROOM TO DISCUSS DISCHARGE PLANNING AND NEEDS. PT REPORTS LIVING AT HOME INDEPENDENTLY AND ALONE. PT HAS A WALKER WITH NO MEDICAL EQUIPMENT PROVIDER PRFERENCE. PT HAS NO OUTSIDE SERVICES ASSISTING IN THE HOME. CM DISCUSSED AVAILABILITY OF HOME HEALTH, REHAB SERVICES AND MEDICAL EQUIPMENT. PT WOULD LIKE REHAB AT [facility]. CM WAITING RESULTS OF INPATIENT REHAB PRESCREENING AND ADMISSION DETERMINATION. SHERICE SPANN DCPIA - Discharge Planning Initial Assessment Updated by [id number]: Ernesto Recinos on 05/16/19 12:02 pm * Is the patient Alert and Oriented? Yes * How many steps to enter\exit or inside your home? * PCP DR. CHEN ?? IN [place] * Pharmacy ?? IN [place] * Preadmission Environment Home Alone * ADLs Independent * Equipment Walker * Other Equipment NO MEDICAL EQUIPMENT PROVIDER PREFERENCE * List name and contact numbers for known caregivers / representatives who currently or will assist patient after discharge: GUSTAVO MONROY, EDMUND, * Verbal permission to speak to the caregivers and representatives has been obtained from the patient. N/A * Community resources currently utilized None * Please name any agencies selected above. NONE * Additional services required to return to the preadmission environment? Yes * Can the patient safely return to the preadmission environment? Yes * Has this patient been hospitalized within the prior 30 days at any hospital? No Coverage Notice Reviewer: [id number] Recinos Notice Issued Date-Time: 05/16/2019 11:00 Notice Type: Patient Choice Letter Notice Delivered To: Family Member Relationship to Patient: Son Client Relations Representative Name: GUSTAVO MONROY Delivery Method: HAND - Hand Delivered Linda Days: Prior Verbal Notification: Recipient Understood Notice: Yes Recipient Signature: Yes Med Rec Note Co-signed by Attending: Coverage Notice Comment: ANY SNF IN [place] Reviewer: [id number] Recinos Notice Issued Date-Time: 05/23/2019 13:00 Notice Type: IM Discharge Notice Notice Delivered To: Patient Relationship to Patient: Client Relations Representative Name: Delivery Method: HAND - Hand Delivered Linda Days: Prior Verbal Notification: Recipient Understood Notice: Yes Recipient Signature: Yes Med Rec Note Co-signed by Attending: Coverage Notice Comment: Last DP export: 05/22/19 7:33 a Patient Name: CASSIE MONROY Page 63868 at 1432 All edits/amendments must be made on the electronic document DICTATION DATE: 05/23/191430 CONTRACT NEGOTIATOR: KARON 05/23/19 143 RPT#: [id number] NM DATE: STATUS: ADM IN [facility] [address] [place] [address] END OF REPORT
[2019-05-23] MEDS ORDERED: PROTONIX40 MG PO (14:33)
[2019-05-23] MEDS ORDERED: ENTRESTO 24 MG1 EACH PO (14:33)
[2019-05-23] MEDS ORDERED: CHRONULAC30 ML PO (14:34)
[2019-05-23] MEDS ORDERED: FLORAJEN3 CAPS460 MG PO (14:34)
--- NOTE | 2019-05-23 14:46 | NUR ---
OT NOTE: PT RESISTANT TO AMB TO BATHROOM HE STATED THAT HE HAD TO GO VERY BAD. ASSISTED WITH URINAL AND BED FOY. PT CONT WITH LIQUID FOUL SMELLING BM. BED MOB WITH MIN ASSIST; UE/LE EXS TO IMPROVE STRENGTH. MARY URIOSTEGUI, OTR/L
--- NOTE | 2019-05-23 16:14 | NUR ---
CALLED REPORT TO [facility] IN REHAB. PATIENT GOING TO ROOM 1117 A. LEAVING THE PICC LINE IN PLACE, AND DISCONNECTING THE TUBE FEEDS AND IVF.
--- NOTE | 2019-05-23 17:10 | NUR ---
OT NOTE: PT COMPLETED BED MOB TASKS WITH MOD A. PT COMPLETED SUPINE TO SIT WITH MOD A. PT COMPLETED HYGIENE TASKS WITH MAX A. THANK YOU, MIK JAQUEZ
== END 2019-05-23 16:30 | DRG 871 ==
LOC: D.ER 23:19 → D.M2 05-11 02:23
PROVIDERS: Emergency Medicine; Family Medicine; Family Medicine Adult Medicine; Internal Medicine Nephrology; ADMIT Family Medicine; ATTEND Family Medicine
PROC: 02H633Z Insertion of Infusion Device into Right Atrium, Percutaneous Approach (ICD-10-PCS; principal; 2019-05-16)
PROC: B244ZZZ Ultrasonography of Right Heart (ICD-10-PCS; 2019-05-16)
PROC: 0DH63UZ Insertion of Feeding Device into Stomach, Percutaneous Approach (ICD-10-PCS; 2019-05-19)
DX: A41.01 Sepsis due to Methicillin susceptible Staphylococcus aureus (principal); G93.41 Metabolic encephalopathy; I50.33 Acute on chronic diastolic (congestive) heart failure; J96.01 Acute respiratory failure with hypoxia; N17.9 Acute kidney failure, unspecified; I13.0 Hypertensive heart and chronic kidney disease with heart failure and stage 1 through stage 4 chronic kidney disease, or unspecified chronic kidney disease; E87.0 Hyperosmolality and hypernatremia; I48.0 Paroxysmal atrial fibrillation; I11.0 Hypertensive heart disease with heart failure; R55 Syncope and collapse; D64.9 Anemia, unspecified; E87.6 Hypokalemia; E11.21 Type 2 diabetes mellitus with diabetic nephropathy; E11.22 Type 2 diabetes mellitus with diabetic chronic kidney disease; N18.9 Chronic kidney disease, unspecified; I08.2 Rheumatic disorders of both aortic and tricuspid valves; R13.10 Dysphagia, unspecified

== ENCOUNTER 2019-05-23 16:54 | Inpatient (IN) | payer MEDICARE, BC ==
[~2019-05-23] VITALS: Ht 172.7 cm; Wt 77.1 kg
[~2019-05-23 16:54] MED LIST: BLOOD THINNER; CHRONULAC30 ML PO; COREG 3.1253.125 MG PO; COREG6.25 MG PO; ENTRESTO 24 MG1 EACH PO; FLORAJEN3 CAPS460 MG PO; GLIPIZIDE10 MG PO; HYDROCHLOROTH12.5 M1 PO; LOVENOX40 MG/0.4 SC; NAFCILLIN 2 GM/N2 G1 IV; PRAVACHOL20 MG PO; PROTONIX40 MG PO
--- NOTE | 2019-05-23 17:05 | NUR ---
RECIEVED ON FLOOR/BED TO ROOM 9198B;ORIENTED TO ROOM AND SURROUNDINGS.CL IN REACH.
--- NOTE | 2019-05-23 19:10 | NUR ---
BEDSIDE SHIFT REPORT COMPLETE. LYING IN BED ON RIGHT SIDE EYES CLOSED RESTING. HAZARDOUS MATERIALS WASTE TECHNICIAN NOTIFIED IN NEED OF KANGAROO PUMP. RR EVEN AND UNLABORED. CALL LIGHT WITHIN REACH, FALL PRECAUTIONS IN PLACE. WILL CONTINUE TO MONITOR
[2019-05-23 20:00] VITALS: BP 181/77
--- NOTE | 2019-05-23 21:00 | NUR ---
RECEIVED KANGAROO PUMP STARTED TUBE FEEDING OSMOLITE 1.5 50ML/HR WITH 25ML/HR H2O FLUSH.
--- NOTE | 2019-05-23 21:45 | NUR ---
FEEDING PUMP ALARMING CHECKED ON PT FOUND PT CHOKING ON VOMIT, PT WAS UNABLE TO GET VOMIT UP TURNED PT TO SIDE RETRIEVED SUCTION AND SUCTIONED SMALL AMOUNT FROM MOUTH. CHANGED LINENS AND GOWN. ELEVATED HEAD 30 DEGREES RESUMED FEEDING. PT RESTING COMFORTABLY.
[2019-05-23 22:14] VITALS: BP 179/74; BMI 25.9
--- NOTE | 2019-05-24 00:48 | NUR ---
LYING IN BED EYES CLOSED RESTING. RR EVEN AND UNLABORED. WILL CONTINUE TO MONITOR
--- NOTE | 2019-05-24 02:45 | NUR ---
LYING ON RIGHT SIDE EYES CLOSED RESTING. NO SIGNS OF DISTRESS NOTED. WILL CONTINUE TO MONITOR
--- NOTE | 2019-05-24 06:31 | NUR ---
LYING IN BED ON RIGHT SIDE EYES CLOSED RESTING. EASILY AROUSED WITH VERBAL STIMULI. DENIES ANY NEEDS OR PAIN. WILL CONTINUE TO MONITOR
[2019-05-24 07:09] LABS: BASOPHILS 0.2 % (0-2); EOSINOPHILS 0.7 % (0-7); HEMATOCRIT 28.8 % (42.0-54.0); HEMOGLOBIN 9.6 g/dL (13.5-17.5); IMMATURE GRANULOCYTES 0.4 % (0-5); LYMPHOCYTES 14.3 % (15-50); MCH 31.5 pg (26.0-34.0); MCHC 33.3 g/dL (31.0-37.0); MCV 94.4 fL (80.0-100.0); MEAN PLATELET VOLUME 10.1 fL (7.4-10.4); MONOCYTES 13.1 % (2-11); NEUTROPHILS 71.3 % (40-80); PLATELET COUNT 260 10x3/uL (130-400); RBC 3.05 10x6/uL (4.20-6.10); RDW 14.6 % (11.5-14.5); WBC 8.3 10x3/uL (4.8-10.8)
[2019-05-24 07:19] LABS: ANION GAP 12.9 mmol/L (8-16); CALCIUM 7.8 mg/dL (8.5-10.1); CARBON DIOXIDE 25.3 mmol/L (21.0-32.0); CREATININE - SERUM 1.2 mg/dL (0.6-1.3); POTASSIUM - SERUM 3.2 mmol/L (3.5-5.1)
[2019-05-24 08:00] VITALS: BP 155/72
[2019-05-24 13:51] VITALS: Ht 172.7 cm; Wt 77.1 kg
--- NOTE | 2019-05-24 15:56 | NUR ---
SITTING UP IN WC IN ROOM. CALL LIGHT IN REACH
--- NOTE | 2019-05-24 16:03 | NUR ---
LAYING IN BED WATCHING TV. DENIES NEEDS. ORAL CARE DONE. TUBE FEEDS INFUSING ORDERED. CALL LIGHT IN HAND.
--- NOTE | 2019-05-24 19:10 | NUR ---
BEDSIDE SHIFT REPORT COMPLETE. SITTING UP IN BED EYES CLOSED RESTING. EASILY AROUSED WITH VERBAL STIMULI. DENIES ANY NEEDS OR PAIN. LUQ PEG SITE WNL TUBE FEEDING OSMOLITE 1.5 50ML/HR 25ML/HR H2O FLUSH. CALL LIGHT WITHIN REACH, FALL PRECAUTIONS IN PLACE. WILL CONTINUE TO MONITOR
[2019-05-24 20:00] VITALS: BP 135/61
--- NOTE | 2019-05-25 00:13 | NUR ---
PARTIAL BED BATH COMPLETE. PT VOMITTED ALL OVER HIMSELF AFTER TAKING A FEW SIPS OF WATER. STOPPED TUBE FEEDING FOR NOW TO ALEVATE N/V. PT STATES HE FEELS BETTER NOW. WILL CONTINUE TO MONITOR
--- NOTE | 2019-05-25 02:25 | NUR ---
QUIET HOURS. LYING IN BED EYES CLOSED RESTING. RR EVEN AND UNLABORED. TUBE FEEDING CONTINUED 50ML/HR. WILL CONTINUE TO MONITOR
[2019-05-25 06:35] LABS: BASOPHILS 0.3 % (0-2); EOSINOPHILS 1.2 % (0-7); HEMATOCRIT 26.6 % (42.0-54.0); HEMOGLOBIN 8.8 g/dL (13.5-17.5); IMMATURE GRANULOCYTES 0.3 % (0-5); LYMPHOCYTES 18.1 % (15-50); MCH 31.5 pg (26.0-34.0); MCHC 33.1 g/dL (31.0-37.0); MCV 95.3 fL (80.0-100.0); MONOCYTES 14.8 % (2-11); NEUTROPHILS 65.3 % (40-80); PLATELET COUNT 294 10x3/uL (130-400); RBC 2.79 10x6/uL (4.20-6.10); RDW 14.5 % (11.5-14.5); WBC 7.4 10x3/uL (4.8-10.8)
[2019-05-25 07:31] LABS: CALCIUM 7.5 mg/dL (8.5-10.1); CREATININE - SERUM 1.2 mg/dL (0.6-1.3)
--- NOTE | 2019-05-25 08:10 | NUR ---
SITTING UP IN WC IN ROOM. HAD LOOSE BM IN TOILET. DENIES PAIN OR SOB.
[2019-05-25 08:17] VITALS: BP 167/78
--- NOTE | 2019-05-25 14:39 | RHP ---
PATIENT: CASSIE MONROY MEDICAL RECORD: [id number] ACCOUNT: [id number] LOCATION:[id number] : 38 ADMISSION DATE: 05/23/19 REHABILITATION HISTORY AND PHYSICAL EXAMINATION POST ADMISSION PHYSICIAN EXAMINATION DATE OF ADMISSION: 05/23/2019. ADMITTING DIAGNOSIS: Metabolic encephalopathy. HISTORY OF PRESENT ILLNESS: The patient is a 78-year-old gentleman with a history of diabetes, hypertension, CHF, who was brought into the ED for acute mental status changes after he was found passed out on his front porch on 05/11/2019. He was very confused and lethargic, would only admit to single command questions. He was admitted to the acute hospital for congestive heart failure, altered mental status, and acute kidney injury. His BNP was 2349 on admission, CK was elevated also along with his troponin, ammonia level was 52. 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 Currently, he has met his goal rate. He did have an episode of lying flat in his bed where the tube feeding was infusion and he had some regurgitation. He did vomit this out of his mouth and nose. He has had prolonged acute hospital stay and has progressed slowly with OT, PT and speech therapy. He is currently on supplemental O2. He has got a new PEG tube continuous feeding. He is receiving IV medication every 4 hours. He is on electrolyte protocol with supplementing. He is also on subq anticoagulant therapy. He is monitoring his mental status closely. It does seem to be improving at times. He had a new-onset bowel and bladder incontinence, monitoring his lab values closely. His ammonia level is being followed closely and treated. He has got deconditioning, debility, impaired mobility. He has got a gait disturbance, weakness, and self-care deficits. These are all barriers to his discharge home. He lives at home alone, is moderately independent with use of a rolling walker for mobility and was independent with his ADLs prior to this acute hospitalization. He is currently set up for mod assist with ADLs. He has a new PEG tube at this time. He is currently mod assist to total assist for mobility. He was driving prior to this. He and his family would like for him to be able to return home to his closer level of functioning as he was prior to this hospitalization. COMORBIDITIES: Include oropharyngeal dysphagia, status post syncopal episode, acute metabolic encephalopathy, severe pulmonary hypertension, ltoun-fu-wigqsej heart failure, ex-smoker, anemia, bacteremia, and sepsis. He has history of paroxysmal atrial fib, acute kidney injury, diabetes mellitus, acute hypoxic respiratory failure, dmwjz-ng-ebkvwbr diastolic heart failure, hypertension, and electrolyte abnormalities. PAST MEDICAL HISTORY: Significant for diabetes, hypertension, CHF, pacemaker placement, history of tobacco use. 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 ALLERGIES: No known drug allergies. CURRENT MEDICATIONS: Include Floranex 460 mg daily. He is on Calmoseptine to apply daily, Pravachol 20 mg daily, hydrochlorothiazide 12.5 mg daily, Lovenox HISTORY AND PHYSICAL [id number] FAYETTE,CASSIE 40 mg daily, carvedilol 3.125 mg b.i.d. with meals, glipizide 10 mg b.i.d. q.a.c., Protonix 40 mg daily, Entresto 24/ one tab b.i.d., lactulose 15 cc b.i.d., and nafcillin 2 grams q.4 hours. HABITS: Does have a history of tobacco use. FAMILY HISTORY: Noncontributory. SOCIAL HISTORY: The patient hopes to get back to his prior level of functioning and return home. REVIEW OF SYSTEMS: GENERAL: Does complain of weakness and fatigue. HEENT: Denies cold, cough, or congestion. CARDIOVASCULAR: Denies chest pain. PHYSICAL EXAMINATION: VITAL SIGNS: Stable, afebrile. GENERAL: An elderly gentleman who is in no acute distress, alert upon exam. HEENT: Normocephalic and atraumatic. Mucosa moist. NECK: Supple, with no lymphadenopathy. LUNGS: Clear at this time. HEART: Regular rate and rhythm. No murmurs, rubs or gallops. ABDOMEN: Soft. His PEG tube looks good and placement looks good. He got positive bowel sounds times 4. EXTREMITIES: No clubbing, cyanosis or edema. NEUROLOGIC: He does have noted proximal muscle weakness. LABORATORY DATA: His white count is 8.3, H&H 9.6 and 28.8, and platelet count is 260. His sodium is 146, potassium 3.2, BUN and creatinine of 17 and 1.2, and blood sugar was noted to be 109. ASSESSMENT: This is a 78-year-old gentleman admitted to the rehab with a working diagnosis of acute metabolic encephalopathy. The patient has potential to make improvement. We instituted the following multidisciplinary therapies including but not limited to physical, occupational, respiratory, speech, nutritional services, prosthetics and orthotics. Given his complex medical condition and risks for more complications, rehabilitation services cannot be provided at a low level of care such as senior care facility. PLAN: 1. Admit to [facility] for an intensive inpatient therapy to include the following disciplines: A. Physical therapy to improve gait, all transfer skills and bed mobility to a modified independent level. B. Occupational therapy to improve activities of daily living to a modified independent level. C. Case management to assist with discharge planning and placement options. D. Nutrition to assist with nutritional needs. E. Rehabilitation nursing to assist in monitoring the patient's underlying medical conditions and to assist with any type of bowel or bladder management. 2. The patient's current medications and medical care will be continued. 3. The patient will be placed on standard fall precautions. 4. The patient's estimated length of stay is approximately 7-10 days. 5. We will go ahead and discuss this patient during care team staff and go HISTORY AND PHYSICAL [id number] FAYETTE,CASSIE ahead and replace his potassium. TRANSINT:[id number] Voice Confirmation ID: [id number] DOCUMENT ID: [id number] DEANDRE notes whether there has been none or any medical/functional change since admission: - No change since pre-admission screen. DEANDRE attests patient continues to be appropriate for IRF: - Continues to be appropriate. DIMPLE DENIS MD at 1439 CC: [id number] DICTATION DATE: 05/24/19 0915 REIMBURSEMENT CONSULTANT: 05/24/[address] [facility] [address] [place] [address]
--- NOTE | 2019-05-25 16:41 | NUR ---
LAYING IN BED WATCHING TV. USES URINAL IN BED. CALL LIGHT IN REACH
[2019-05-25 19:20] VITALS: BP 117/69
--- NOTE | 2019-05-25 20:00 | NUR ---
PT IS RESTING IN BED WITH EYES OPEN. ALERT AND ORIENTED X 3. DENIES ACUTE DISCOMFORT AT THIS TIME. VSS. PEG FEEDING STARTED AT THIS TIME. IV ABX INFUSE TO RIGHT ARE PICC LINE. PT USES YANKEUR SUCTION PRN. PT NPO. STATES HE WANTS A SPRITE LEFT AT HIS BEDSIDE. I INFORMED HIM THAT I COULD NOT DO THAT, BUT COULD WATCH HIM TAKE A FEW SMALL SIPS. HE ANGRILY SAID HE WOULD HAVE IT OUT WITH THAT GIRL TOMORROW. SR'S ARE UP X 3 IN BED. CALL LIGHT AND BEDSIDE TABLE ARE WITHIN EASY REACH.
--- NOTE | 2019-05-25 22:08 | NUR ---
PT IS RESTING QUIETLY IN BED WITH EYES CLOSED. NO DISTRESS NOTED.
--- NOTE | 2019-05-26 00:01 | NUR ---
RESTING IN BED WITH EYES CLOSED.
--- NOTE | 2019-05-26 04:00 | NUR ---
PT INC. OF URINE. BRIEN CARE AND PAD CHANGE DONE.
[2019-05-26 08:00] VITALS: BP 143/63
--- NOTE | 2019-05-26 08:00 | NUR ---
SHIFT ASSMT COMPLETED.HOB UP 3O DEGREE'S.ASSISTED UP OOB INCONT OF URINE.CLEANED.DRESSED AND READY FOR THERAPY.
--- NOTE | 2019-05-26 12:00 | NUR ---
RESTING QUIETLY IN BED.HOB UP 30 DEGREE'S.GT FEEDING GIVEN.IRENE WELL.
[2019-05-26 20:00] VITALS: BP 141/68
--- NOTE | 2019-05-26 20:18 | NUR ---
PT IS RESTING IN BED WITH EYES OPEN. ALERT AND ORIENTED X 3. DENIES ACUTE PAIN OR DISCOMFORT AT THIS TIME. PEG TUBE IS INFUSING WITHOUT DIFFICULTY. PT IS NPO. SPEECH IS GARBLED, BUT UNDERSTANDABLE. RIGHT ARM PICC LINE NOTED. 3+ EDEMA NOTED TO BILAT. ANKLES. BOTH ELEVATED UP ON PILLOWS TO PROMOTE REDUCTION. SR'S ARE UP X 3 IN BED. CALL LIGHT AND BEDSIDE TABLE ARE WITHIN EASY REACH.
--- NOTE | 2019-05-26 22:25 | NUR ---
PT RESTING IN BED WATCHING TV. NO ACUTE DISTRESS NOTED.
--- NOTE | 2019-05-27 01:09 | NUR ---
PT IS RESTING IN BED WITH EYES CLOSED. NO ACUTE DISTRESS NOTED.
--- NOTE | 2019-05-27 01:26 | NUR ---
IN BED. INCONTINENCE CARE GIVEN PER STAFF NURSE. NO ACUTE DISTRESS NOTED. CALL LIGHT IN REACH.
--- NOTE | 2019-05-27 06:27 | NUR ---
PT RESTING IN BED WITH EYES OPEN. PT IS REQUESTING A TRANSFER TO A REHAB IN [place]. HE STATES THEY DO A BETTER JOB, AND WILL LET HIM DRINK WHATEVER HE WANTS. I INFORMED HIM HE WOULD NEED TO TALK TO THE NUTRIENT MANAGEMENT SPECIALIST IN THE AM. HE VOICED UNDERSTANDING. PT ALLOWED TO RINSE MOUTH WITH H2O AND USE YANKEUR SUCTION TO REMOVE IT WITHOUT SWALLOWING.
[2019-05-27 08:00] VITALS: BP 150/74
--- NOTE | 2019-05-27 08:00 | NUR ---
SHIFT ASSMT COMPLETED.
--- NOTE | 2019-05-27 12:00 | NUR ---
IRENE BOLUS FEEDS.
--- NOTE | 2019-05-27 16:00 | NUR ---
UP AISHA IN WC.CL IN REACH.
--- NOTE | 2019-05-27 19:23 | NUR ---
PT IS RESTING IN BED WITH EYES OPEN. ALERT AND ORIENTED X 3. PEG TUBE IS INFUSING WITHOUT DIFFICULTY. PT IS NPO. SPEECH IS GARBLED. RIGHT ARM PICC LINE NOTED. FEET ELEVATED UP ON PILLOWS TO PROMOTE EDEAM REDUCTION. SR'S ARE UP X 3 IN BED. CALL LIGHT AND BEDSIDE TABLE ARE WITHIN EASY REACH.
[2019-05-27 20:00] VITALS: BP 150/72
--- NOTE | 2019-05-27 21:31 | NUR ---
PT ASSISTED UP TO THE SINK TO BRUSH HIS TEETH WITH SBA, THEN BACK TO BED.
--- NOTE | 2019-05-27 23:49 | NUR ---
PT RESTING IN BED WATCHING TV. NO ACUTE DISTRESS NOTED.
--- NOTE | 2019-05-28 01:54 | NUR ---
INCONTINENT OF URINE. INCONTINENCE CARE GIVEN AND BED LINENS CHANGED. FEEDING TUBE INTACT WITH OSMOLITE FEEDING INFUSING PER [place] [employer]MP. RESPIRATIONS UNLABORED. NO ACUTE DISTRESS NOTED. CALL LIGHT IN REACH.
--- NOTE | 2019-05-28 05:03 | NUR ---
RESTING IN BED WITH EYES CLOSED. USING URINAL PRN.
[2019-05-28 06:45] LABS: CALCIUM 7.5 mg/dL (8.5-10.1); CREATININE - SERUM 1.4 mg/dL (0.6-1.3)
[2019-05-28 06:48] LABS: BASOPHILS 0.2 % (0-2); HEMATOCRIT 22.1 % (42.0-54.0); IMMATURE GRANULOCYTES 0.2 % (0-5); LYMPHOCYTES 26.6 % (15-50); MCH 30.9 pg (26.0-34.0); MCHC 32.6 g/dL (31.0-37.0); MCV 94.8 fL (80.0-100.0); MONOCYTES 11.3 % (2-11); NEUTROPHILS 58.7 % (40-80); PLATELET COUNT 331 10x3/uL (130-400); RBC 2.33 10x6/uL (4.20-6.10); RDW 14.6 % (11.5-14.5)
[2019-05-28 07:26] LABS: HEMOGLOBIN 7.2 g/dL (13.5-17.5)
[2019-05-28 08:00] VITALS: BP 124/55
--- NOTE | 2019-05-28 08:15 | NUR ---
PT RESTING IN BED WITH EYES OPEN CALL LIGHT IN REACH WILL MONITER
--- NOTE | 2019-05-28 12:48 | NUR ---
Nutrition follow-up: Osmolite 1.5 ayse 50 ml/hr x 12 hours nocturnal with 25 ml H2O flush q hr 3 cans bolus during the day with 110 ml H2O flush before/after bolus Pts diet advanced to mechanical soft with thin liquids with speech feeding only. Labs reviewed. BNP elevated; may need to decrease flush Wt: 170# RDN following.
[2019-05-28 13:44] LABS: HEMATOCRIT 26.1 % (42.0-54.0); HEMOGLOBIN 8.5 g/dL (13.5-17.5)
[2019-05-28 16:17] LABS: % SATURATION 8 % (15-55); IRON 12 ug/dl (35-150); TOTAL IRON BIND CAPACITY 138 ug/dl (260-445); UNSAT IRON BIND CAPACITY 126 ug/dl (150-375)
--- NOTE | 2019-05-28 20:16 | NUR ---
REST IN BED. PT STATES:" ROOM IS COLD, ADJUSTED ROOM TEMP AND BLANCKET PROVIED
[2019-05-28 23:29] VITALS: BP 136/66
--- NOTE | 2019-05-29 01:46 | NUR ---
REST IN BED. EYE CLOSE. BED LOW. CALL LIGHT IN REACH.
--- NOTE | 2019-05-29 04:38 | NUR ---
REST QUIETLY IN BED.
[2019-05-29 06:42] LABS: BASOPHILS 0.2 % (0-2); EOSINOPHILS 4.2 % (0-7); HEMATOCRIT 23.3 % (42.0-54.0); HEMOGLOBIN 7.8 g/dL (13.5-17.5); IMMATURE GRANULOCYTES 0.2 % (0-5); LYMPHOCYTES 28.5 % (15-50); MCH 31.7 pg (26.0-34.0); MCHC 33.5 g/dL (31.0-37.0); MCV 94.7 fL (80.0-100.0); MEAN PLATELET VOLUME 9.5 fL (7.4-10.4); MONOCYTES 12.3 % (2-11); NEUTROPHILS 54.6 % (40-80); PLATELET COUNT 392 10x3/uL (130-400); RBC 2.46 10x6/uL (4.20-6.10); RDW 14.2 % (11.5-14.5); WBC 5.5 10x3/uL (4.8-10.8)
[2019-05-29 07:10] LABS: CALCIUM 7.9 mg/dL (8.5-10.1); CARBON DIOXIDE 26.9 mmol/L (21.0-32.0); CREATININE - SERUM 1.4 mg/dL (0.6-1.3)
[2019-05-29 07:49] VITALS: BP 142/66
[2019-05-29 08:00] LABS: ANION GAP 13.2 mmol/L (8-16); POTASSIUM - SERUM 3.1 mmol/L (3.5-5.1)
--- NOTE | 2019-05-29 10:30 | NUR ---
SITTING UP IN BED WATCHING TV WITH NO SOUND. TOOK AM MEDS WITH NO PROBLEM AND ATE SOME BREAKFAST WITH NO PROBLEMS. EATS AND CHEWS SLOWLY. CALL LIGHT IN REACH
--- NOTE | 2019-05-29 19:20 | NUR ---
CALLED LAB TO CHECK ON BLOOD. LAB STATED IT WOULD BE TEN MORE MIN. WCTM
--- NOTE | 2019-05-29 19:45 | NUR ---
PT LYING IN BED. CL IN REACH. DENIES NEEDS OR PAIN AT THIS TIME. BED IN LOW SIDE RAILS X2. A/O X4. LUNGS CLEAR. SUCTION AT BED SIDE. RESP EVEN AND UNLABORED. BOWEL ACTIVE X4. PEG TUBE INTACT. NO REDNESS NOTED TO SITE. WILL CONTINUE TO MONITOR.
[2019-05-29 20:47] VITALS: BP 117/61
--- NOTE | 2019-05-29 21:05 | NUR ---
STARTED FIRST UNIT OF BLOOD. TEMP WAS 99.6 TYLENOL GIVEN. STAYED IN ROOM FIRST 15 MIN AND NO SIGNS OF REACTION. VITALS WNL TEMP CAME DOWN AFTER 15 MIN. WCTM
--- NOTE | 2019-05-30 00:05 | NUR ---
FIRST UNIT FINISHED. NS RUNNING THROUGH UNTIL SECOND UNIT STARTED.
--- NOTE | 2019-05-30 00:20 | NUR ---
2ND UNIT STARTED. TEMP NORMAL. NO SIGNS OF REACTION IN FIRST 15 MIN. WCTM
[2019-05-30 05:54] LABS: BASOPHILS 0.2 % (0-2); EOSINOPHILS 5.7 % (0-7); IMMATURE GRANULOCYTES 0.6 % (0-5); MCH 30.8 pg (26.0-34.0); MCHC 33.3 g/dL (31.0-37.0); MEAN PLATELET VOLUME 9.8 fL (7.4-10.4); MONOCYTES 13.7 % (2-11); NEUTROPHILS 49.8 % (40-80); PLATELET COUNT 391 10x3/uL (130-400); RDW 15.3 % (11.5-14.5); WBC 5.4 10x3/uL (4.8-10.8)
--- NOTE | 2019-05-30 06:12 | NUR ---
I have reviewed this patient and I concur with the Shift Assessment completed by the Licensed Practical Nurse today this shift.
[2019-05-30 06:24] LABS: ANION GAP 12.1 mmol/L (8-16); CALCIUM 8.1 mg/dL (8.5-10.1); CARBON DIOXIDE 27.4 mmol/L (21.0-32.0); CREATININE - SERUM 1.4 mg/dL (0.6-1.3); POTASSIUM - SERUM 3.5 mmol/L (3.5-5.1)
[2019-05-30 06:25] LABS: HEMATOCRIT 29.1 % (42.0-54.0); HEMOGLOBIN 9.7 g/dL (13.5-17.5); MCV 92.4 fL (80.0-100.0); RBC 3.15 10x6/uL (4.20-6.10)
[2019-05-30 07:49] VITALS: BP 160/82
--- NOTE | 2019-05-30 19:42 | NUR ---
PT LYING IN BED. CL IN REACH. DENIES NEEDS AT THIS TIME. BED IN LOW. WCTM
[2019-05-30 19:44] VITALS: BP 113/59
--- NOTE | 2019-05-30 21:20 | NUR ---
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 ASSISTED TO AND FROM BATHROOM. DENIES FURTHER NEEDS. LUNGS CLEAR. BOWEL ACTIVE X4. RESP EVEN AND UNLABORED. A/O X4. PEG TUBE INTACT. CONTINOUS FEED IN PLACE AT THIS TIME. MIN ASSIST TO BATHROOM. EDEMA 2+ TO BLE AND 1+ TO BUE. WILL CONTINUE TO MONITOR.
--- NOTE | 2019-05-31 01:34 | NUR ---
RESTING IN BED WITH RESPIRATIONS UNLABORED. PEG TUBE WITH FEEDING PATENT. NO DISTRESS NOTED. CALL LIGHT IN REACH.
--- NOTE | 2019-05-31 02:33 | NUR ---
PT RESTING QUIETLY. CL IN REACH. NO DISTRESS NOTED. WCTM
--- NOTE | 2019-05-31 06:31 | NUR ---
TUBE FEED TURNED OFF AT 0600. CL IN REACH. ASSISTED PULLING UP IN BED. DENIES FURTHER NEEDS. CL IN REACH. WCTM
--- NOTE | 2019-05-31 08:00 | NUR ---
UP OOB FOR OBSERVED BREAKFAST MEAL.REQUIRES SEVERAL TIMES TO SWALLOW 3 TIMES AFTER TAKING A BITE OF FOOD OR DRINK.STATES EVERYTHING IS NORMAL FOR HIM TO COUGH OR WIPE LIQUID FROM HIS NOSE OR HAVE LIQUID IN HIS THROAT.REINSTRUCTED RE:IMPORTANCE TO FOLLOW THROUGH INSTRUCTED PER ST.CONSUMED 75% OF MEAL.
[2019-05-31 08:15] VITALS: BP 139/64
--- NOTE | 2019-05-31 12:00 | NUR ---
SITTING UP WITH ST.
[2019-05-31 12:01] LABS: BASOPHILS 0.2 % (0-2); EOSINOPHILS 4.8 % (0-7); HEMATOCRIT 31.4 % (42.0-54.0); HEMOGLOBIN 10.2 g/dL (13.5-17.5); IMMATURE GRANULOCYTES 0.6 % (0-5); LYMPHOCYTES 18.1 % (15-50); MCH 30.3 pg (26.0-34.0); MCHC 32.5 g/dL (31.0-37.0); MCV 93.2 fL (80.0-100.0); MEAN PLATELET VOLUME 9.5 fL (7.4-10.4); MONOCYTES 14.1 % (2-11); NEUTROPHILS 62.2 % (40-80); PLATELET COUNT 416 10x3/uL (130-400); RBC 3.37 10x6/uL (4.20-6.10); RDW 15.2 % (11.5-14.5)
[2019-05-31 12:10] LABS: ANION GAP 11.9 mmol/L (8-16); CALCIUM 8.2 mg/dL (8.5-10.1); CARBON DIOXIDE 26.1 mmol/L (21.0-32.0); CREATININE - SERUM 1.6 mg/dL (0.6-1.3)
--- NOTE | 2019-05-31 16:00 | NUR ---
REMAINS UP IN CHAIR. ROUNDED.
--- NOTE | 2019-05-31 16:04 | NUR ---
PATIENT ADMITTED TO REHAB FROM ACUTE FLOOR. DME AT HOME IS A [facility]. HIS PCP IS DR. CHEN ?? IN [place]. HIS PERSON TO CONTACT IS HIS SON , GUSTAVO [phone]. IF PATIENT IS UNABLE TO RETURN HOME AT DISCHARGE THEN A SNF IN [place] IS WHERE HE WOUOLD LIKE TO GO. WILL CONTINUE TO FOLLOW WITH PATIENT AND WILL ASSIST WITH DISCHARGE NEEDS.
[2019-05-31 19:25] VITALS: BP 120/75
--- NOTE | 2019-05-31 19:25 | NUR ---
GREETED PATIENT AND INTRODUCED MYSELF. PATIENT IS LAYING IN BED IN SUPINE POSITION WITH HOB AT 30 DEGREES. RESPIRATIONS EVEN. NO S/S OF DISTRESS. DENIES ANY PAIN AT THIS TIME. DENIES ANY FURTHER NEEDS AT THIS TIME. VITAL SIGNS OBATINED. CALL LIGHT IN REACH.
--- NOTE | 2019-06-01 00:11 | NUR ---
PATIENT AWAKE AND LAYING IN BED. PT. IS COMPLAINING BECAUSE HE HAS TO KEEP THE HOB AT 30 DEGREES WHILE FEEDING. PATIENT STATED THAT THERE WAS NO WAY HE COULD SLEEP WITH HIS HEAD UP THAT HIGH. I OFFERED PATIENT A SMALL SIP OF WATER, BUT PATIENT STARTED CHOKING AND I TOLD PATIENT THAT I WOULD BE GLAD TO WET WITH HIS MOUTH WITH SPONGES, BUT PATIENT REFUSED. WILL CONTINUE TO MONITOR. CALL LIGHT IN REACH.
--- NOTE | 2019-06-01 04:03 | NUR ---
PATIENT AWAKE AND MOISTENED MOUTH WITH WET SWAB TO HELP WITH DRY MOUTH. PATIENT DENIES ANY OTHER NEEDS AT THIS TIME. CALL LIGHT IN REACH.
[2019-06-01 07:30] VITALS: BP 116/68
--- NOTE | 2019-06-01 10:32 | NUR ---
LAYING IN BED RESTING QUIETLY. HAS BEEN SITTING UP IN WC MOST OF MORNING DOING THERAPY AND VISITING WITH STAFF. ATE APPX 90% BREAKFAST. CALL LIGHT IN REACH
--- NOTE | 2019-06-01 19:25 | NUR ---
BEDSIDE REPORT COMPLETE. SITTING UP IN W/C FININSHING DINNER. NO SIGNS OF DISTRESS NOTED. DENIES ANY NEEDS OR PAIN. CALL LIGHT WITHIN REACH, FALL PRECAUTIONS IN PLACE. WILL CONTINUE TO MONITOR
[2019-06-01 20:39] VITALS: BP 157/73
--- NOTE | 2019-06-01 20:46 | NUR ---
TUBE FEEDING STARTED ISMOLITE 1.5 30ML/HR 20ML/HR FLUSH
--- NOTE | 2019-06-01 22:23 | NUR ---
QUIET HOURS. LYING IN BED HOB 35 DEGRESS EYES CLOSED RESTING. RR EVEN AND UNLABORED. WILL CONTINUE TO MONITOR
--- NOTE | 2019-06-02 00:47 | NUR ---
QUIET HOURS. LYING IN BED HOB 35 DEGREES EYES CLOSED RESTING. RR EVEN AND UNLABORED. WILL CONTINUE TO MONITOR
--- NOTE | 2019-06-02 03:40 | NUR ---
QUIET HOURS. LYING IN BED HOB 30 DEGREES EYES CLOSED RESTING. RR EVEN AND UNLABORED. WILL CONTINUE TO MONITOR
--- NOTE | 2019-06-02 06:08 | NUR ---
SITTING UP IN BED WATCHING MORNING NEWS. DENIES ANY NEEDS OR PAIN. NO SIGNS OF DISTRESS NOTED. WILL CONTINUE TO MONITOR
[2019-06-02 09:08] VITALS: BP 147/69
--- NOTE | 2019-06-02 10:03 | NUR ---
SITTING UP IN WC IN ROOM. SIPS THIN LIQUIDS FROM CUP. COUGHS AT TIMES BUT CAN CLEAR OWN AIRWAY. HAS SUCTION AT BEDSIDE IF NEEDED. CALL LIGHT IN REACH
--- NOTE | 2019-06-02 14:35 | NUR ---
RESTING QUIETLY IN BED. HAS SET UP FOR MOST OF DAY. DENIES PAIN. CALL LIGHT IN REACH
[2019-06-02 19:05] VITALS: BP 104/74
--- NOTE | 2019-06-02 19:05 | NUR ---
BEDSIDE REPORT COMPLETE. SITTING UP IN W/C ASSISTED WITH TRANSFER FROM CHAIR TO BED WITH MOD ASSIST. DENIES ANY NEEDS OR PAIN. ANDREW PICC DRSG CLEAN AND INTACT NO REDNESS OR SWELLING AT SITE. CALL LIGHT WITHIN REACH, FALL PRECAUTIONS IN PLACE. WILL CONTINUE TO MONITOR
--- NOTE | 2019-06-03 00:12 | NUR ---
QUIET HOURS. LYING IN BED HOB 30 DEGREES EYES CLOSED RESTING. RR EVEN AND UNLABORED. WILL CONTINUE TO MONITOR
--- NOTE | 2019-06-03 02:23 | NUR ---
LYING IN BED HOB 30 DEGREES EYES CLOSED RESTING. URINAL EMPTIED 400ML. NO SIGNS OF DISTRESS NOTED. WILL CONTINUE TO MONITOR
--- NOTE | 2019-06-03 04:37 | NUR ---
LYING IN BED HOB 35 DEGREES WATCHING TV. 250ML EMPTIED FROM URINAL. NO SIGNS OF DISTRESS NOTED. WILL CONTINUE TO MONITOR
--- NOTE | 2019-06-03 06:23 | NUR ---
LYING IN BED HOB 30 DEGREES EYES CLOSED RESTING. TUBE FEEDING DC @ 0546. NO SIGNS OF DISTRESS NOTED. WILL CONTINUE TO MONITOR
[2019-06-03 07:30] VITALS: BP 155/78
--- NOTE | 2019-06-03 10:14 | NUR ---
SITTING UP IN WC IN ROOM. HAS ATE BREAKFAST, WASHED MOUTH AND TEETH, COMBED HAIR AND ROLLED SELF AROUND IN ROOM SO FAR THIS MORNING. HE IS OFF TO A GOOD START. CALL LIGHT IN REACH.
--- NOTE | 2019-06-03 12:44 | NUR ---
SITTING UP IN WC IN ROOM EATING LUNCH. DENIES NEEDS. ABLE TO KEEP OWN AIRWAY CLEARED. TAKES SMALL BITES AND SIPS OF THIN LIQUIDS. CALL LIGHT AND SUCTION AT HAND.
--- NOTE | 2019-06-03 13:25 | NUR ---
SITTING UP IN WC IN ROOM. MOVEMENTS ARE SLOW. HE NEEDS ASST TRANSFERING AND GETTING IN AND OUT OF BED. CALL LIGHT IN REACH
--- NOTE | 2019-06-03 19:09 | NUR ---
GREETED PATIENT AND INTRODUCED MYSELF. PATIENT IS SITTING IN WHEELCHAIR WATCHING TV. DENIES ANY NEEDS AT THIS TIME. CALL LIGHT IN REACH.
[2019-06-03 21:43] VITALS: BP 111/66
--- NOTE | 2019-06-04 01:06 | NUR ---
PATIENT RESTING QUIETLY WITH EYES CLOSED. RESPIRATIONS EVEN. NO S/S OF DISTRESS. SR UP X 2. BED IN LOWEST POSITION. CALL LIGHT IN REACH.
--- NOTE | 2019-06-04 01:44 | NUR ---
PATIENT CLEANED OF INCONTINENT URINE. REPOSITIONED FOR COMFORT. CALL LIGHT IN REACH. HOB AT 35 DEGREES. TUBE FEEDING OF 1.5 OSMOLITE CONTINUES AT 30 ML WITH 20 ML FLUSH.
[2019-06-04 05:47] LABS: BASOPHILS 0.2 % (0-2); EOSINOPHILS 6.1 % (0-7); HEMATOCRIT 28.2 % (42.0-54.0); HEMOGLOBIN 9.3 g/dL (13.5-17.5); IMMATURE GRANULOCYTES 0.5 % (0-5); LYMPHOCYTES 27.4 % (15-50); MCH 30.3 pg (26.0-34.0); MCV 91.9 fL (80.0-100.0); MEAN PLATELET VOLUME 9.2 fL (7.4-10.4); MONOCYTES 15.7 % (2-11); NEUTROPHILS 50.1 % (40-80); PLATELET COUNT 357 10x3/uL (130-400); RBC 3.07 10x6/uL (4.20-6.10); RDW 14.6 % (11.5-14.5); WBC 5.7 10x3/uL (4.8-10.8)
[2019-06-04 05:57] LABS: ANION GAP 12.2 mmol/L (8-16); CALCIUM 7.9 mg/dL (8.5-10.1); CARBON DIOXIDE 25.7 mmol/L (21.0-32.0); CREATININE - SERUM 1.9 mg/dL (0.6-1.3); POTASSIUM - SERUM 3.9 mmol/L (3.5-5.1)
[2019-06-04 07:30] VITALS: BP 139/64
--- NOTE | 2019-06-04 08:30 | NUR ---
SITTING UP IN WC IN ROOM FOR BREAKFAST. MOVEMENTS ARE SLOW BUT HE FEEDS SELF AND BRUSHED TEETH THIS MORNING BY HIMSELF. SPEECH IS SLOW AND DIFFICULT TO UNDERSTAND AT TIMES. CALL LIGHT IN REACH
--- NOTE | 2019-06-04 13:02 | NUR ---
Nutrition Follow-up: Diet: Diabetic Diet TF: Osmolite 1.5 Nocturnal feeds of 30mL/hr x 12hrs and Bolus feeds of 1 can if PO intake <50% of meal. Spoke with nurse who states that patient is tolerating PO diet well, eating >50% at meals consistently. Plans for discharge this week. PO intake: average 56% x 6 days Labs and meds reviewed. Last BM 06/03/19 Discontinued TF. Will continue to monitor PO intake this week. RDN Following.
--- NOTE | 2019-06-04 14:26 | NUR ---
SITTING UP IN WC IN ROOM. HAS BEEN UP MOST OF DAY. FEEDS SELF AND USES URINAL.
--- NOTE | 2019-06-04 19:00 | NUR ---
PT IN BED LOWEST POSITION, EATING DINNER, NO NEEDS NOTED, FLUIDS AND CALL LIGHT WITHIN REACH, WATCHING TV
[2019-06-05 02:08] VITALS: BP 129/58
--- NOTE | 2019-06-05 02:35 | NUR ---
PT IN BED LOWEST POSITION, EYES CLOSED AROUSES EASILY TO VOICE, NO IMMEDIATE NEEDS NOTED, RESPIRATORY EVEN AND UNLABORED, FLUIDS AND CALL LIGHT WITHIN REACH
--- NOTE | 2019-06-05 06:51 | NUR ---
PT IN BED LOWEST POSITION, EYES CLOSED AROUSES EASILY TO VOICE, NO IMMEDIATE NEEDS NOTED, RESPIRATORY EVEN AND UNLABORED, FLUIDS AND CALL LIGHT WITHIN REACH
--- NOTE | 2019-06-05 08:00 | NUR ---
SHIFT ASSMT COMPLETED.
[2019-06-05 10:31] VITALS: BP 142/64
--- NOTE | 2019-06-05 12:00 | NUR ---
SITTING UP EATING LUNCH.ST AT BEDSIDE.
--- NOTE | 2019-06-05 15:29 | NUR ---
ASSISTED TO BED WITH WALKER.CL IN REACH.
--- NOTE | 2019-06-05 19:15 | NUR ---
PT UP IN CHAIR EATING, NO NEEDS NOTED, FLUIDS AND CALL LIGHT WITHIN REACH
--- NOTE | 2019-06-05 21:40 | NUR ---
PT TOILETED, CLEANED UP AZUL TO COCCYX, PLACED INTO BED, BED IN LOWEST POSITION, NO OTHER NEEDS NOTED AT THIS TIME, FLUIDS AND CALL LIGHT WITHIN REACH
[2019-06-05 23:20] VITALS: BP 146/69
[2019-06-06 05:42] LABS: BASOPHILS 0.3 % (0-2); EOSINOPHILS 4.8 % (0-7); HEMATOCRIT 26.1 % (42.0-54.0); HEMOGLOBIN 8.7 g/dL (13.5-17.5); IMMATURE GRANULOCYTES 0.5 % (0-5); LYMPHOCYTES 29.4 % (15-50); MCH 30.3 pg (26.0-34.0); MCHC 33.3 g/dL (31.0-37.0); MCV 90.9 fL (80.0-100.0); MEAN PLATELET VOLUME 9.3 fL (7.4-10.4); MONOCYTES 16.1 % (2-11); NEUTROPHILS 48.9 % (40-80); PLATELET COUNT 360 10x3/uL (130-400); RBC 2.87 10x6/uL (4.20-6.10); RDW 14.5 % (11.5-14.5)
--- NOTE | 2019-06-06 05:51 | NUR ---
CBC AND BMP DRAWN FROM RUE PICC LINE, THE RED LINE DOES NOT DRAW, FLUIDS AND CALL LIGHT WITHIN REACH
[2019-06-06 06:06] LABS: ANION GAP 14.4 mmol/L (8-16); CALCIUM 7.9 mg/dL (8.5-10.1); CARBON DIOXIDE 22.5 mmol/L (21.0-32.0); POTASSIUM - SERUM 3.9 mmol/L (3.5-5.1)
--- NOTE | 2019-06-06 06:34 | NUR ---
LAB CALLED A CRITICAL OF 54 GLUCOSE ON PT, GAVE CHOCLATE PUDDING AND APPLE JUICE, WILL RECHECK PT IN APPROX. 30 MIN
[2019-06-06 08:00] VITALS: BP 101/51
--- NOTE | 2019-06-06 08:00 | NUR ---
SHIFT ASSMT COMPLETED.UP OOB SITTING UP IN WC.BREAKFAST GIVEN.MEAL SET-UP PROVIDED.CL IN REACH.
--- NOTE | 2019-06-06 12:00 | NUR ---
UP IN WC,LUNCH GIVEN.MEAL SET-UP PROVIDED.
--- NOTE | 2019-06-06 13:23 | NUR ---
Nutrition Follow-up: Diet: Diabetic AHA Mech Soft PO: 67% x last 3 meals Wt: 170# (05/24/19) +BM Labs and meds reviewed. noted pt with low blood sugar this am. TF was D/C'd on Tuesday. Will add Glucerna TID to help meet nutrition needs. RD Following.
--- NOTE | 2019-06-06 16:31 | NUR ---
CARE TEAM MEETING: PATIENT SISTER N AND HIS AUNT ATTENDED MEETING. THEIR QUESTIONS AND CONCERNS WERE ADDRESSED. TENATIVE DISCHARGE DATE IS 06/08/19. LEFT MESSAGE ON MACHINE FOR HIS SON TO CALL. WILL CONTINUE TO FOLLOW WITH PATIENT.
--- NOTE | 2019-06-06 19:30 | NUR ---
GREETED PATIENT AND INTRODUCED MYSELF HIS NURSE. ASSISTED PATIENT INTO BED FROM WHEELCHAIR. DENIES ANY OTHER NEEDS AT THIS TIME. CALL LIGHT IN REACH.
[2019-06-06 20:00] VITALS: BP 115/59
--- NOTE | 2019-06-07 03:14 | NUR ---
PATIENT RESTING QUIETLY WITH EYES CLOSED. RESPIRATIONS EVEN. NO S/S OF DISTRESS. SR UP X 2. BED IN LOWEST POSITION. HOB AT 30 DEGREES. CALL LIGHT IN REACH.
[2019-06-07 07:25] VITALS: BP 159/75
--- NOTE | 2019-06-07 07:40 | NUR ---
BEDSIDE REPORT COMPLETED. LYING IN BED SUPINE HOB 30 DEGREES EYES CLOSED RESTING. RR EVEN AND UNLABORED. ANDREW PICC SITE DRESSING C/D/I NO REDNESS OR SWELLING. CALL LIGHT WITHIN REACH, FALL PRECAUTIONS IN PLACE. WILL CONTINUE TO MONITOR
--- NOTE | 2019-06-07 13:50 | NUR ---
IN SHOWER ASSISTED BY VENKATA HOLLIDAY
--- NOTE | 2019-06-07 15:43 | NUR ---
SITTING UP IN BED WATCHING TV. DENIES ANY NEEDS OR PAIN. NO SIGNS OF DISTRESS NOTED. WILL CONTINUE TO MONITOR
--- NOTE | 2019-06-07 18:25 | NUR ---
SITTING UP IN W/C IN ROOM. DENIES ANY NEEDS OR PAIN. NO SIGNS OF DISTRESS NOTED. WILL CONTINUE TO MONITOR
[2019-06-07 19:34] VITALS: BP 131/58
--- NOTE | 2019-06-07 19:34 | NUR ---
GREETED PATIENT AND INTRODUCED MYSELF HIS NURSE. PATIENT IS LAYING IN BED WATCHING TV. DENIES ANY NEEDS AT THIS TIME. VITAL SIGNS OBTAINED. CALL LIGHT IN REACH.
--- NOTE | 2019-06-07 21:00 | NUR ---
PATIENT IS VERY HATEFUL TO NURSING STAFF THIS EVENING. PT. STATES THAT " YOU DONT KNOW WHAT YOU ARE DOING. I CAN BE HATEFUL IF I WANT TO." WHEN ASKED WHAT WAS WRONG. THIS NURSE ASKED PATIENT TO PLEASE NOT CURSE AT STAFF AND PT. RESPONDED, " I CAN DO AND SAY WHATEVER I WANT"
--- NOTE | 2019-06-08 02:14 | NUR ---
PATIENT RESTING QUIETLY WITH EYES CLOSED. HOB AT 30 DEGREES. RESPIRATIONS EVEN. NO S/S OF DISTRESS. SR UP X 2. BED IN LOWEST POSITION. CALL LIGHT IN REACH.
--- NOTE | 2019-06-08 07:15 | NUR ---
BEDSIDE REPORT COMPLETE. LYING IN BED EYES CLOSED RESTING. RR EVEN AND UNLABORED. CALL LIGHT AND WATER WITHIN REACH, FALL PRECAUTIONS IN PLACE. WILL CONTINUE TO MONITOR
[2019-06-08 07:51] VITALS: BP 135/59
--- NOTE | 2019-06-08 10:35 | NUR ---
PATIENT DISCHARGING HOME TODAY. [facility] WILL PROVIDE THERAPYA T HOME. [facility] HAS DELIVERED A WHEELCHAIR TO PATIENT. DR. ELMORE 06/15/19 @ 10:00. PATIENT CHOICE FORM AND [facility] FORMS SIGNED, COPY GIVEN TO PATIENT AND FILED IN CHART. DSICHARGE INSTRUCTIONS WITH [facility] DATA FAXED TO PCP, HOME HEALTH AND REVIEWED WITH PATIENT.
--- NOTE | 2019-06-08 12:30 | NUR ---
REVIEWED D/C INSTRUCTIONS AND MEDICATIONS WITH PATIENT AND PT FAMILY. NO CONCERNS VOICED. EXPLAINED IN LENGTH THE IMPORTANCE OF NOT DRIVING UNTIL SEEN BY DR. ELMORE PT VERBALIZED UNDERSTANDING. EDUCATED PATIENT AND PATIENT FAMILY ON USING PEG TUBE AND HOW TO TAKE CARE OF. PT AND FAMILY VERBALIZED UNDERSTANDING AND PT RETURN DEMOSTRATED HOW TO FLUSH PEG. PT DISCHARGING IN STABLE CONDITION.
--- NOTE | 2019-06-08 12:42 | NUR ---
PATIENT WAS INSTRUCTED NOT TO DRIVE UNTIL RELEASED BY PCP
--- NOTE | 2019-06-08 13:00 | NUR ---
PT TRANSPORTED OUT VIA PATIENTS OWN WHEELCHAIR ACCOMPANIED BY FAMILY AND HOSPITAL STAFF.
== END 2019-06-08 13:00 | disposition home health service (06) | DRG 70 ==
LOC: D.REHAB 16:54
PROVIDERS: Family Medicine; ADMIT Emergency Medicine; ATTEND Emergency Medicine
DX: G93.41 Metabolic encephalopathy (principal); I50.33 Acute on chronic diastolic (congestive) heart failure; A41.9 Sepsis, unspecified organism; J96.01 Acute respiratory failure with hypoxia; N17.9 Acute kidney failure, unspecified; I13.0 Hypertensive heart and chronic kidney disease with heart failure and stage 1 through stage 4 chronic kidney disease, or unspecified chronic kidney disease; E87.0 Hyperosmolality and hypernatremia; I11.0 Hypertensive heart disease with heart failure; R55 Syncope and collapse; R13.12 Dysphagia, oropharyngeal phase; I27.20 Pulmonary hypertension, unspecified; D64.9 Anemia, unspecified; I48.0 Paroxysmal atrial fibrillation; E11.65 Type 2 diabetes mellitus with hyperglycemia; E11.22 Type 2 diabetes mellitus with diabetic chronic kidney disease; N18.9 Chronic kidney disease, unspecified; E11.21 Type 2 diabetes mellitus with diabetic nephropathy; E83.39 Other disorders of phosphorus metabolism

== ENCOUNTER 2019-09-25 14:24 | Emergency (ER) | payer MEDICARE, BC ==
[~2019-09-25] VITALS: Ht 172.7 cm; Wt 68.2 kg
[2019-09-25 14:32] VITALS: Ht 172.7 cm; Wt 68.2 kg
[2019-09-25] MEDS ORDERED: FEOSOL LIQ300 MG/5 M PO (14:36)
[2019-09-25] MEDS ORDERED: CARDIZEM30 MG PO (14:36)
[2019-09-25] MEDS ORDERED: FOLIC ACID1 MG PO (14:37)
[2019-09-25] MEDS ORDERED: VITAMIN B-121000 MCG PO (14:37)
[2019-09-25] MEDS ORDERED: LANOXIN125 MCG PO (14:37)
[2019-09-25] MEDS ORDERED: ELIQUIS2.5 MG PO (14:37)
[2019-09-25] MEDS ORDERED: ZOLOFT25 MG PO (14:38)
[2019-09-25 16:24] VITALS: BP 169/71
== END 2019-09-25 16:35 | disposition home or self-care (01) ==
LOC: D.ER 14:24
DX: K94.23 Gastrostomy malfunction (principal); E11.9 Type 2 diabetes mellitus without complications; Z95.5 Presence of coronary angioplasty implant and graft; I11.9 Hypertensive heart disease without heart failure